=== PATIENT | female | born 1995 | race Caucasian/White ===

== ENCOUNTER 2020-03-30 09:24 | Inpatient (IN) | payer OTHER, SELFPAY ==
[2020-03-30] VITALS (154 sets, daily range): BP systolic 72–170; BP diastolic 36–153; PULSE 68–127; TEMP 36.5–37.7; O2SAT 97–100; BMI 30.4
--- NOTE | 2020-03-30 09:53 | LDADM ---
This patient, Ju Luis, was admitted to Labor/Delivery/Recovery 102 on 03/30/20 at 09:24. Plans for labor, pain management and were discussed with patient. Patient/family oriented to hospital policies and general routines including ID bracelet, bed and alarms, visiting hours, pain management, procedures, bathroom and other care routines, personal items, smoking policy, room service/diet and guest tray routines, security routines, and visiting hours. Patient/Family are encouraged to report perceived risks to care and to ask questions if they do not understand what they are told or what they should do. See OBIX for further documentation.
[2020-03-30 09:55] LABS: Basophils Percent Auto 0.2 % (0.2-1.2); Eosinophils Absolute Auto 0.1 K/mm3 (0-0.3); Eosinophils Percent Auto 1.2 % (0-4.4); Hematocrit 35.4 % (37.0-47.0); Hemoglobin 11.3 g/dL (12.0-15.0); Immature Granulocyte Absolute 0.03 K/mm3 (0.00-0.031); Immature Granulocyte Percent A 0.4 % (0-0.5); Lymphocytes Absolute Auto 2.53 K/mm3 (0.9-3.2); Lymphocytes Percent Auto 30.9 % (18.3-44.2); Mean Corpuscular HGB Conc 31.9 g/dl (32-36); Mean Corpuscular Hemoglobin 25.1 pg (26-34); Mean Corpuscular Volume 78.5 fl (80-100); Mean Platelet Volume 11.5 fl (7.4-10.4); Monocytes Absolute Auto 0.6 K/mm3 (0.1-0.6); Neutrophils Absolute Auto 4.9 K/mm3 (1.3-6.7); Neutrophils Percent Auto 60.3 % (45.5-73.1); Platelet Count Result 223 k/mm3 (150-375); Red Blood Count 4.51 M/mm3 (4.2-5.4); Red Cell Distribution Width 15.4 % (11.5-14.5); White Blood Count 8.2 K/mm3 (4.5-10.0)
--- NOTE | 2020-03-30 10:03 | WPDANESEPP ---
Anes - Eval Pre Procedure Procedure: labor epidural Date/Time: 03/30/20 10:03 Preop Diagnosis: pain during labor Pre Op Diagnosis: Induction of Labor Patient Data Age: 24 Gender: F Height: 5 ft 1 in Weight: 73 kg Allergies Allergy/AdvReac Type Severity Reaction Status Date / Time Penicillins Allergy Mild TREMBLING Verified 03/06/20 13:36 Sulfa (Sulfonamide Allergy Unknown RASH Verified 03/06/20 13:36 Antibiotics) Home Medications Medication Instructions Recorded Confirmed Type PNV cmb#95-ferrous fumarate-FA 1 tablet PO DAILY 03/06/20 03/06/20 History [] Laboratory Tests 03/30/20 03/30/20 09:46 09:46 WBC 8.2 K/mm3 K/mm3 (4.5-10.0) RBC 4.51 M/mm3 M/mm3 (4.2-5.4) Hgb 11.3 g/dL L g/dL (12.0-15.0) Hct 35.4 % L % (37.0-47.0) MCV 78.5 fl L fl (80-100) MCH 25.1 pg L pg (26-34) MCHC 31.9 g/dl L g/dl (32-36) RDW 15.4 % H % (11.5-14.5) Plt Count 223 k/mm3 k/mm3 (150-375) MPV 11.5 fl H fl (7.4-10.4) Immature Gran % (Auto) 0.4 % % (0-0.5) Neut % (Auto) 60.3 % % (45.5-73.1) Lymph % (Auto) 30.9 % % (18.3-44.2) [place] % (Auto) 7.0 % % (2.6-8.5) Eos % (Auto) 1.2 % % (0-4.4) Baso % (Auto) 0.2 % % (0.2-1.2) Lymph # (Auto) 2.53 K/mm3 K/mm3 (0.9-3.2) [place] # (Auto) 0.6 K/mm3 K/mm3 (0.1-0.6) Eos # (Auto) 0.1 K/mm3 K/mm3 (0-0.3) Baso # (Auto) 0.0 K/mm3 K/mm3 (0.0-0.1) Abs Immat Gran (auto) 0.03 K/mm3 K/mm3 (0.00-0.031) Absolute Neuts (auto) 4.9 K/mm3 K/mm3 (1.3-6.7) Absolute Nucleated RBC 0.0 K/mm3 K/mm3 (0.0-0.012) Nucleated RBC % 0.0 % % (0.0-0.2) RPR Pending Patient hx anesthesia problems: none Family hx anesthesia problems: none [facility] Family History Family History (Updated 03/06/20 @ 13:38 by Mike Craig RN) Grandparent FH: CABG (coronary artery bypass surgery) Borderline diabetes Hypertension Social History Social History Smoking status: Never smoker Substance use: never Spiritual care concerns: No Exam Day of Procedure 03/30/20 10:03
[2020-03-30] MEDS: LACTATED RINGERS 1,000 ML 125 ML IV CONT ×3 (10:12→20:08)
[2020-03-30] MEDS: OXYTOCIN 30 UNITS/NS 500 ML 30 UNITS/500 ML BAG 6 UNITS IV CONT (10:12)
--- NOTE | 2020-03-30 11:54 | WPDOBADMIT ---
Obstetrics - Admit Note Admission Note: record reviewed. No pertinent additions to the history and/or any subsequent changes in the physical findings that are not consistent with the expected course of the were found. EIL, SVE 2-3/70/-2 AROM large amount of clear odorless fluid, anticipate vaginal delivery Additions to the history and/or subsequent changes in the physical findings follow. None.
[2020-03-30] MEDS: miSOPROStol 200 MCG TABLET 1000 MCG (20:54)
--- NOTE | 2020-03-30 21:04 | PM.OBPRVD ---
OB - Delivery Note Procedure Delivery date: 03/30/20 Procedure: vaginal delivery Induction method: AROM and per pitocin protocol Delivery monitor: external FHT and external uterine Route of delivery: Laceration description: Labial Delivery repair: vicryl Specimen: No Estimated blood loss (mL): 340 Anesthesia type: Epidural Disposition: other () [place] Baby Date of : 03/30/20 Time of : 20:42 Weeks of gestation at delivery: 39 Infant gender: Female Weight (pounds): 7 Weight (ounces): 6 presentation: vertex position: Left Occiput Anterior Placenta delivery description: Spontaneous cord vessel description: 3 Vessels and Clamped/Cut score one minute: 8 score five minutes: 9 Narrative: mother and baby in stable condition skin to skin, 1000mcg cytotec placed rectally fundus firm after
[2020-03-30] MEDS: OXYTOCIN 30 UNITS/NS 500 ML 30 UNITS/500 ML BAG 125 UNITS IV CONT (21:22)
[2020-03-30] MEDS: BENZOCAINE 20% AER SPR (*SP) 56 GM CAN 1 SPRAY TOPICAL (23:23)
[2020-03-30] MEDS: WITCH HAZEL 40 PADS 1 PAD TOPICAL (23:24)
[2020-03-30] MEDS: ACETAMINOPHEN 325 MG TABLET 650 MG PO (23:34)
[2020-03-30] MEDS: IBUPROFEN 600 MG TABLET PO (23:34)
[2020-03-31 05:15] LABS: Hematocrit 28.8 % (37.0-47.0)
--- NOTE | 2020-03-31 07:22 | P.PNOB_ITS ---
OB - PN: Subj Subjective Date/time seen: 03/31/20 07:22 Patient comments: no complaints baby status: doing well and bottle feeding well [place] feeding status: exclusively bottle feeding OB - PN: Obj Data Labs CBC & Chem 7: 03/31/20 04:11 Labs: Laboratory Results - last 24 hr 03/30/20 03/30/20 03/31/20 09:46 09:46 04:11 WBC 8.2 RBC 4.51 Hgb 11.3 L 9.0 L Hct 35.4 L 28.8 L MCV 78.5 L MCH 25.1 L MCHC 31.9 L RDW 15.4 H Plt Count 223 MPV 11.5 H Immature Gran % (Auto) 0.4 Neut % (Auto) 60.3 Lymph % (Auto) 30.9 [place] % (Auto) 7.0 Eos % (Auto) 1.2 Baso % (Auto) 0.2 Lymph # (Auto) 2.53 [place] # (Auto) 0.6 Eos # (Auto) 0.1 Baso # (Auto) 0.0 Abs Immat Gran (auto) 0.03 Absolute Neuts (auto) 4.9 Absolute Nucleated RBC 0.0 Nucleated RBC % 0.0 Blood Type A Positive Antibody Screen Negative OB - PN A/P Plan day: 1 Plan: routine care Time Spent With Patient Time: Total time spent is greater than 50% in coordination of care (as doc umented) at patient's floor/unit and/or counseling patient: Exam Const: General: comfortable Resp: Effort & Inspection: normal respiratory effort Psych: Appearance: grossly normal Affect: normal affect Attitude: cooperative Judgement: Good judgement present (Psych)
[2020-03-31 10:30] VITALS: BP 115/81; PULSE 106; RESP 18; TEMP 37.2; O2SAT 98
[2020-03-31] MEDS: POLYSACCHARIDE IRON COMPLEX 150 MG CAPSULE PO ×2 (10:53→17:12)
[2020-03-31] MEDS: IBUPROFEN 600 MG TABLET PO ×2 (10:54→19:00)
[2020-03-31] MEDS: DOCUSATE SODIUM 100 MG CAPSULE PO ×2 (10:54→17:12)
--- NOTE | 2020-03-31 11:05 | WPDANLDPN2 ---
Anes-Prog Note L&D Date/Time: 03/31/20 11:05 Comfortable throughout: labor and delivery Neuraxial method: epidural Epidural/Spinal procedure site: clean & non-tender Neuro status: Neuro function grossly intact. Cardiovascular status: normal Respiratory status: normal Airway patency: baseline Mental status: baseline Post-Op hydration status: normal Vital Signs: Last Vital Signs Temp 37.7 C H 03/30/20 23:30 Pulse 95 03/30/20 23:01 BP 110/73 03/30/20 23:01 Pulse Ox 100 03/30/20 19:34 I/O: Intake & Output 03/30/20 03/31/20 03/31/20 23:59 07:59 15:59 Intake Total 1700 Output Total 365 Balance 1335 Post-procedural complaints: none Patient feedback: Patient satisfied with anesthetic care.
[2020-03-31] MEDS: TETANUS,DIPHTHERIA,AC PERTUSSIS ADULT (0.5 ML) BOOSTRIX IM (17:14)
[2020-03-31 19:10] VITALS: BP 113/64; PULSE 91; RESP 18; TEMP 36.6; O2SAT 99
[2020-04-01 07:15] VITALS: BP 109/78; PULSE 91; RESP 18; TEMP 37.3; O2SAT 97
[2020-04-01] MEDS: DOCUSATE SODIUM 100 MG CAPSULE PO (09:37)
[2020-04-01] MEDS: POLYSACCHARIDE IRON COMPLEX 150 MG CAPSULE PO (09:37)
--- NOTE | 2020-04-01 11:52 | PM.OBPNVD ---
OB - PN: Subj Subjective Date/time seen: 04/01/20 11:52 Patient comments: no complaints, pain well controlled and tolerating diet OB - PN: Obj Data Labs CBC & Chem 7: 03/31/20 04:11 OB - PN A/P Plan day: 2 Plan: routine care and discharge home Time Spent With Patient Time: Total time spent is greater than 50% in coordination of care (as documented) at patient's floor/unit and/or counseling patient: Exam Const: General: comfortable and no acute distress Resp: Effort & Inspection: normal respiratory effort Auscultation: no rales, no rhonchi and no wheezes Cardio: Rate: regular rate Heart sounds: no click, no murmurs and no rubs GI: GI Palp: Yes Soft to palpation and No Tenderness to palpation present (GI) Auscultation: normal bowel sounds Extrem: General: normal to inspection, no pedal edema and no calf tenderness
--- NOTE | 2020-04-01 11:53 | P.DS_ITS ---
DS: Admitting Diagnosis Admitting Diagnosis Admitting Diagnosis: Induction of Labor DS: Discharge Diagnosis Discharge Diagnosis (1) Term delivered: Code(s): O80 - Encounter for full-term uncomplicated delivery Status: Acute OB - DS: Summary OB Procedures : None OB Procedures Intrapartum: Spontaneous Vag Delivery OB Procedures: : None Peripartum Data Delivery Method: Natural Vaginal Status at Discharge Functional status at discharge: independent ambulation Time Spent with Patient Time attestation: Total time spent providing and/or coordinating discharge services: Discharge Plan Discharge Discharging Clinician: Adolfo Guerrero Patient Disposition: Home, Self-Care Activity: pelvic rest Diet: regular Patient Instructions: Antibiotic Form Stand Alone Forms: General Discharge Information Follow-up/Referrals: Adolfo Guerrero MD [Physician] - Discharge Medications: Continued PNV cmb#95-ferrous fumarate-FA [] 28 mg iron- 800 mcg Tablet 1 tablet PO DAILY RF: 0 Date of admission: 03/30/20 09:24 Primary Care Provider: Zane,Erik ([facility]) Admitting Provider: Adolfo Guerrero Attending physician on admission: Adolfo Guerrero
--- NOTE | 2020-04-01 17:53 | PC.NURSE ---
1200 Nurse reminded pt several times this a.m. to watch the discharge DVD. she stated she would view it on her phone, but then never did. Pt aware that she can access it from home, and referred to information in her Admission packet.
--- NOTE | 2020-04-01 17:54 | PC.NURSE ---
1263 Mother reviewed and signed discharge papers for herself and her baby and voiced understanding.
[2020-04-02 09:50] LABS: Rapid Plasma Reagin Non-Reactive (NonReactive)
[2020-04-04 13:50] VITALS: BP 101/71; PULSE 86; RESP 20; TEMP 36.8; O2SAT 99
== END 2020-04-01 13:51 | disposition home or self-care (01) | DRG 807 ==
LOC: ANHLDR 09:27 → ANHOB2 23:51
PROVIDERS: Advanced Practice Midwife; Admitting Provider Obstetrics & Gynecology; PCP Internal Medicine; Visit Provider Obstetrics & Gynecology
DX: O70.1 Second degree perineal laceration during delivery (principal); Z37.0 Single live birth; Z3A.39 39 weeks gestation of pregnancy
CPT/HCPCS: 36415; 85014; 85018; 85025; 86592; 86850; 86900; 86901; 90715; A9270; J2590; J2795; J7120

== ENCOUNTER 2020-11-08 08:39 | Outpatient (CLI) | payer OTHER, SELFPAY ==
--- NOTE | ~2020-11-08 | US_ITS ---
EXAMINATION: US thyroid DATE: 11/08/2020 09:06 INDICATION: Hypothyroidism TECHNIQUE: Multiple ultrasound images of the thyroid were obtained. COMPARISON: None. FINDINGS: The right thyroid lobe measures 4.2 x 2.0 x 1.6 cm. The left thyroid lobe measures 4.5 x 1.9 x 1.4 c m. Thyroid isthmus measures 4 mm in thickness. No discrete nodules identified. Heterogeneous decrease d echogenicity with coarsened echotexture throughout the thyroid and with diffuse mild increased vasc ularity on color Doppler. IMPRESSION: 1. Hypoechoic thyroid with coarsened echotexture and diffuse increased vascular flow on color Doppler which could be seen with thyroiditis. Reviewed, dictated and finalized at location A.
== END 2020-11-08 08:40 | disposition home or self-care (01) ==
PROVIDERS: PCP Internal Medicine; Visit Provider Advanced Practice Midwife
DX: E03.9 Hypothyroidism, unspecified (principal)
CPT/HCPCS: 76536

== ENCOUNTER 2023-07-17 12:45 | Emergency (ER) | payer OTHER, SELFPAY ==
[2023-07-17 12:49] VITALS: BP 128/90; PULSE 97; RESP 17; TEMP 36.9; O2SAT 100
--- NOTE | 2023-07-17 14:15 | ED.ABDPAIN ---
HPI - Abdominal Pain General Chief Complaint: Abdominal Pain Stated Complaint: abd pain Time Seen by Provider: 07/17/23 13:57 History of Present Illness HPI narrative: Patient is a healthy 27-year-old female here with abdominal pain. She states that the abdominal pain began on Thursday Adriana is located in her epigastrium. She notes that it feels as though she is bloated. She took laxatives on Thursday which was followed by a bowel movement. This did not seem to change symptoms. She has continued to have flatulence. No prior abdominal surgeries. No fever or chills. She has noted some associated nausea. She denies prior history of endoscopy or colonoscopy. No blood or dark stools. No vaginal bleeding or discharge. She has taken multiple tests at home which were negative. she does state that she frequently takes powdered aspirin/ ibuprofen for migraine headaches. Related Data Home Medications Medication Instructions Recorded Confirmed vit no.95-ferrous 1 tablet PO DAILY 03/06/20 03/06/20 fumarate 28 mg-folic acid 800 mcg tablet () Allergies Allergy/AdvReac Type Severity Reaction Status Date / Time Penicillins Allergy Mild TREMBLING Verified 07/17/23 12:52 Sulfa (Sulfonamide Allergy Unknown RASH Verified 07/17/23 12:52 Antibiotics) Review of Systems Review of Systems: All systems reviewed & are unremarkable except as noted in HPI and below PMFSH Family History Family History (Updated 03/06/20 @ 13:38 by Mike Craig RN) Grandparent FH: CABG (coronary artery bypass surgery) Borderline diabetes Hypertension Social History Social History Smoking status: Never smoker Substance use: never Spiritual care concerns: No Exam Narrative: GENERAL: Well-appearing, well-nourished, and in no acute distress. HEAD: Normocephalic, atraumatic. EYES: PERRLA and EOMI. ENT: Nares clear. Mucous membranes moist. NECK: Supple. CHEST: Clear to auscultation. No respiratory distress. HEART: Regular rate and rhythm. Normal peripheral pulses. ABDOMEN: Soft, Mild epigastric tenderness, no rebound or guarding, negative Schilling sign, no McBurney point tenderness, no CVA tenderness, no suprapubic tenderness EXTREMITIES: Normal range of motion. No edema. SKIN: Warm, dry, no rash. NEURO: No focal deficits. Alert and oriented x3. PSYCH: Normal mood and affect. Course Course Emergency Course: Chart review performed, here with 5 days of abdominal pain and bloating. Triage vitals normal. triage lab work reviewed, no leukocytosis, hemoglobin 14, CMP within normal limits with normal LFTs and normal lipase. Patient seen evaluated, nontoxic appearing. Nonsurgical abdomen at this time. Suspect she likely has a dyspepsia/ gastritis from her NSAID usage. I did discuss the option of imaging today despite reassuring physical exam and lab work. Shared decision making with patient. Will start patient on Carafate, Pepcid, Zofran and have her follow closely with her primary care doctor and return should any of her symptoms worsen or she develops a fever. The results of pertinent diagnostic studies and exam findings were discussed. The patient?s provisional diagnosis and plan of care were discussed with the patient and present family. The patient and/or present family expressed understanding of the diagnosis and plan. The nurse was instructed to provide written instructions and appropriate follow-up information. The patient understands their need and responsibility to obtain additional follow-up as instructed. The risks of medications administered and prescribed were discussed with the patient and family present. Vital Signs Vital signs: Vital Signs Temperature 98.4 F 07/17/23 12:49 Pulse Rate 97 07/17/23 12:49 Respiratory Rate 17 07/17/23 12:49 Blood Pressure 128/90 07/17/23 12:49 Pulse Oximetry 100 07/17/23 12:49 Oxygen Delivery Room Air 07/17/23 12:49 T
[2023-07-17 14:16] LABS: Basophils Percent Auto 0.1 % (0.2-1.2); Eosinophils Absolute Auto 0.1 K/mm3 (0-0.3); Eosinophils Percent Auto 0.9 % (0-4.4); Hematocrit 42.6 % (37.0-47.0); Immature Granulocyte Absolute 0.02 K/mm3 (0.00-0.031); Immature Granulocyte Percent A 0.3 % (0-0.5); Lymphocytes Absolute Auto 1.75 K/mm3 (0.9-3.2); Lymphocytes Percent Auto 25.5 % (18.3-44.2); Mean Corpuscular HGB Conc 32.9 g/dl (32-36); Mean Corpuscular Hemoglobin 29.3 pg (26-34); Mean Corpuscular Volume 89.1 fl (80-100); Mean Platelet Volume 10.2 fl (7.4-10.4); Monocytes Absolute Auto 0.5 K/mm3 (0.1-0.6); Monocytes Percent Auto 7.7 % (2.6-8.5); Neutrophils Absolute Auto 4.5 K/mm3 (1.3-6.7); Neutrophils Percent Auto 65.5 % (45.5-73.1); Platelet Count Result 253 k/mm3 (150-375); Red Blood Count 4.78 M/mm3 (4.2-5.4); Red Cell Distribution Width 12.8 % (11.5-14.5); White Blood Count 6.9 K/mm3 (4.5-10.0)
[2023-07-17 14:26] LABS: Alanine Aminotransferase 14 U/L (6-35); Albumin Level 4.2 g/dL (3.5-5.1); Alkaline Phosphatase 50 U/L (38-126); Anion Gap 7 mmol/L (8-16); Aspartate Amino Transferase 23 U/L (14-36); Bilirubin,Total 0.5 mg/dL (0.2-1.3); Blood Urea Nitrogen 6 mg/dL (7-17); Calcium 9.2 mg/dL (8.4-10.2); Carbon Dioxide 25 mmol/L (22-30); Chloride 106 mmol/L (98-107); Estimated CRCL calculation 78 ml/min; Estimated Glomerular Filt Rate > 60; Glucose 77 mg/dL (65-110); Lipase 86 U/L (23-300); Potassium 4.1 mmol/L (3.4-5.0); Sodium 138 mmol/L (137-145)
[2023-07-17 15:34] LABS: Appearance Urine Cloudy (Clear); Bacteria Urine 1+ /hpf; Bilirubin Urine Negative (Negative); Blood Urine Trace (Negative); Color Urine Yellow (Yellow); Glucose Urine UA Negative (Negative); Ketones Urine Negative (Negative); Leukocyte Esterase Ur 1+ LEU/UL (Negative); Nitrate Urine Negative (Negative); Non Pathogenic Casts 0-2; Protein Urine Negative (Negative); RBC Urine 0-2 /hpf (0-2); Specific Grav Ur 1.024 (1.001-1.035); Squamous Epithelial Cell Urine Few /hpf (Few); WBC Urine 21-50 /hpf; pH Urine 5.5 (5.0-9.0)
[2023-07-17] MEDS: SUCRALFATE SUSP 100 MG/ML 10 ML UDC 1000 MG PO (15:42)
[2023-07-17] MEDS: ONDANSETRON HCL ODT 4 MG TABLET PO (15:42)
[2023-07-17 15:45] VITALS: BP 119/82; PULSE 73; RESP 15; O2SAT 100
[2023-07-17 15:53] LABS: Add Urine Microscopic? YES
== END 2023-07-17 15:46 | disposition home or self-care (01) ==
PROVIDERS: Emergency Provider Student in an Organized Health Care Education/Training Program; PCP Internal Medicine
DX: R10.13 Epigastric pain (principal); R11.0 Nausea
CPT/HCPCS: 36415; 80053; 81001; 81025; 83690; 85025; 87086; 87088; 99283; A9270

== ENCOUNTER 2023-12-28 06:25 | Emergency (ER) | payer SELFPAY ==
[2023-12-28 06:25] VITALS: BP 108/83; PULSE 89; RESP 18; TEMP 36.4; O2SAT 98
--- NOTE | 2023-12-28 06:36 | PC.NURSE ---
ER Provider at the bedside
--- NOTE | 2023-12-28 06:49 | ED.GENADULT ---
HPI - General Adult General Chief complaint: Dental/Oral Stated complaint: Dental Pain Source: patient Mode of arrival: ambulatory Limitations: no limitations History of Present Illness HPI narrative: 20-year-old white female complains of left lower tooth pain started 2 or 3 days ago. She has had problem with that tooth before as well as posterior molar taken Tylenol without much relief. Denies any fever cough runny nose sore throat problems eating or drinking voiding or stooling rash or itching bleeding or bruising lumps or bumps or any other problems. She said she is going to call the doctor /Dentist in 2 days. Related Data Allergies Allergy/AdvReac Type Severity Reaction Status Date / Time Penicillins Allergy Mild TREMBLING Verified 07/17/23 12:52 Sulfa (Sulfonamide Allergy Unknown RASH Verified 07/17/23 12:52 Antibiotics) Review of Systems Review of Systems: All systems reviewed & are unremarkable except as noted in HPI and below [facility] Family History Family History (Updated 03/06/20 @ 13:38 by Mike Craig RN) Grandparent FH: CABG (coronary artery bypass surgery) Borderline diabetes Hypertension Social History Social History Smoking status: Never smoker Substance use: never Spiritual care concerns: No Exam Narrative: white female no apparent distress head normocephalic atraumatic TMs are normal oropharynx is clear without exudates. Left lower tooth 20. Was cracked mildly tender and her molar 17 is decayed but nontender. She has swelling of gums. Neck no lymphadenopathy supple. Lungs are clear heart is regular rate and rhythm without murmurs gallops or rubs neurologic she is alert and oriented x4 motor and sensory grossly intact skin is clear. Course Vital Signs Vital signs: Vital Signs Temperature 36.4 C 12/28/23 06:25 Pulse Rate 89 12/28/23 06:25 Respiratory Rate 18 12/28/23 06:25 Blood Pressure 108/83 12/28/23 06:25 Pulse Oximetry 98 12/28/23 06:25 Oxygen Delivery Room Air 12/28/23 06:25 Temperature 36.4 C 12/28/23 06:25 Pulse Rate 89 12/28/23 06:25 Respiratory Rate 18 12/28/23 06:25 Blood Pressure 108/83 12/28/23 06:25 Pulse Oximetry 98 12/28/23 06:25 Oxygen Delivery Room Air 12/28/23 06:25 Medical Decision Making MDM Narrative Medical decision making narrative: ? Patient placed in room: One ? History and physical was performed. Independent Historian: patient External Source Review: Differential Dx includes but not limited to: dental abscess dental silvano Medications were Reviewed: Tylenol no other meds Medications given: none Independently Interpreted by me: Shared decision Making: evaluation was discussed all questions were asked and answered patient agreed with the plan. Social Situation Impacting Patients Care: She has not seen a dentist in years Discussed with Dr. BYRNE DIAGNOSIS: dental pain DISPOSITION: discharge home CONDITION AT DISCHARGE: stable Vital Signs Vital Signs: Vital Signs Temperature 36.4 C 12/28/23 06:25 Pulse Rate 89 12/28/23 06:25 Respiratory Rate 18 12/28/23 06:25 Blood Pressure 108/83 12/28/23 06:25 Pulse Oximetry 98 12/28/23 06:25 Oxygen Delivery Room Air 12/28/23 06:25 Temperature 36.4 C 12/28/23 06:25 Pulse Rate 89 12/28/23 06:25 Respiratory Rate 18 12/28/23 06:25 Blood Pressure 108/83 12/28/23 06:25 Pulse Oximetry 98 12/28/23 06:25 Oxygen Delivery Room Air 12/28/23 06:25 Discharge Plan Discharge Clinical Impression: Pain, dental Patient Disposition: Home, Self-Care Condition: Stable Instructions: Antibiotic Form, Toothache (ED) Additional Instructions: Tylenol 500 m tablets 4 times a day and or ibuprofen 200 m tablets 3 times a day as needed for pain. Tramadol 50 mg 3 times a day as needed for pain. Follow-up with your dentist in 2 days as discussed. clindamycin 150 mg 3 times a day for 7 days
== END 2023-12-28 07:08 | disposition home or self-care (01) ==
PROVIDERS: Emergency Provider Emergency Medicine; PCP Internal Medicine
DX: K08.89 Other specified disorders of teeth and supporting structures (principal)
CPT/HCPCS: 99283

== ENCOUNTER 2024-09-16 14:55 | Outpatient (CLI) | payer BC, SELFPAY ==
[2024-09-16 15:11] LABS: Basophils Absolute Auto 0.01 K/mm3 (0.00-0.10); Basophils Percent Auto 0.1 % (0.0-1.0); Eosinophils Absolute Auto 0.23 K/mm3 (0.02-0.50); Hematocrit 38.3 % (35.0-49.0); Hemoglobin 12.6 g/dL (12.0-15.0); Immature Granulocyte Absolute 0.03 K/mm3 (0.00-0.00); Immature Granulocyte Percent A 0.4 % (0.0-0.0); Lymphocytes Absolute Auto 1.83 K/mm3 (1.10-4.50); Lymphocytes Percent Auto 24.2 % (18.0-42.0); Mean Corpuscular HGB Conc 32.9 g/dL (32-36); Mean Corpuscular Hemoglobin 28.8 pg (27.0-31.0); Mean Corpuscular Volume 87.6 fL (78.0-102.0); Mean Platelet Volume 9.8 fl (9.2-11.8); Monocytes Absolute Auto 0.47 K/mm3 (0.10-0.90); Monocytes Percent Auto 6.2 % (2.0-11.0); Neutrophils Percent Auto 66.1 % (50.0-70.0); Platelet Count Result 249 K/mm3 (150-420); Red Blood Count 4.37 M/mm3 (4.20-5.40); White Blood Count 7.6 K/mm3 (4.8-10.8)
[2024-09-16 16:06] LABS: Alanine Aminotransferase 15 U/L (14-59); Albumin Level 3.9 g/dL (3.4-5.0); Alkaline Phosphatase 49 U/L (46-116); Anion Gap 9 mmol/L (4-12); Bilirubin,Total 0.4 mg/dL (0.00-1.00); Blood Urea Nitrogen 12 mg/dL (7-18); Calcium 9.2 mg/dL (8.5-10.1); Carbon Dioxide 29 mmol/L (21-32); Chloride 105 mmol/L (98-108); Cholesterol 144 mg/dL (0-200); Estimated Glomerular Filt Rate > 60; Glucose 87 mg/dL (70-99); HDL Direct 46 mg/dL (40-60); LDL Cholesterol Calculated 82 mg/dL (<130); Osmolality Calculated 294 mOsm/kg (285-295); Potassium 3.7 mmol/L (3.5-5.1); Sodium 143 mmol/L (136-145); Total Protein 7.2 g/dL (6.4-8.2); Triglycerides 81 mg/dL (0-150)
[2024-09-16 16:24] LABS: Aspartate Amino Transferase 12 U/L (15-37)
[2024-09-16 16:38] LABS: Free T4 Free Thyroxine Reflex 0.86 ng/dL (0.76-1.46)
[2024-09-16 17:21] LABS: Hemoglobin A1C 4.8 % (<5.7)
== END 2024-09-16 14:56 | disposition home or self-care (01) ==
LOC: CHSLAB 14:57
PROVIDERS: PCP Nurse Practitioner Family; Visit Provider Nurse Practitioner Family
DX: Z00.00 Encounter for general adult medical examination without abnormal findings (principal); E03.9 Hypothyroidism, unspecified
CPT/HCPCS: 36415; 80053; 80061; 83036; 84439; 84443; 85025

== ENCOUNTER 2024-11-04 10:02 | Outpatient (CLI) | payer BC, SELFPAY ==
--- OUTSIDE RECORDS SUMMARY | 2024-11-04 10:53 | XMS_ITS | Data Portability ---
Author Organization [facility] Address [address] [place] [address] Assessment Encounter Date Assessment Date Assessment LastModified by Organization Details LastModified Time 09/24/2022 09/24/2022 Pt follows with [facility]. [email or web address] Not available 09/24/2022 14:30:19 12/24/2022 12/24/2022 Pt follows with [facility]. Sections of the HPI, exam and assessment completed by ENOC Hernandez student and have been reviewed by me. I agree with the exam findings, assessment and plan except where specifically documented or amended. -Juana Corbett, [facility], PASrikanthC [email or web address] Not available 12/24/2022 14:00:07 Plan of Treatment Reminders Order Date Submit Date Provider Last Modified By Organization Details Last Modified Time Details Appointments None recorded. Lab None recorded. Referral neurologist referral 2022 023 [email or web address] Halie Estes MD, [address] [facility] [address], [place], [address], 3 16:51:[address] referral 2022 023 ivan Magdaleno MD, [address], [place], [address], 3 13:13:02 Procedures None recorded. Surgeries None recorded. Imaging None recorded. Medication Orders triamcinolo ne acetonide 0.1 % topical ointment 2022 023 [email or web address] [id number], [address] [place], [address], 3 14:22:21 nystatin 100,000 unit/gram topical cream [address] [id number], [address] [place], [address], 3 11:19:07 topiramate 25 mg tablet 2022 023 [email or web address] [id number], [address] [place], [address], 3 11:37:23 Patient TargetsNo targets recorded. Patient Instructions Encounter Date Encounter Id Patient Instructions Last Modified By Organization Details Last Modified Time 09/24/2022 [id number] A healthy lifestyle: care instructions [email or web address] Not available 09/24/2022 14:22:21 Reason for Referral Director Community Organization Referral for P ustular psoriasis Referring Physician: [facility], Encounter Date: 09/24/2022 Neurologist Referral for Aleks ludivina without aura Referring Physician: [facility], Encounter Date: 12/24/2022 Problems Name Problem SNOMED Code Status Onset Date Resolution Date Notes Provider Name and Address Organization Details Recorded Time 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 Medical Equipment None Reported. Allergies Allergen ID Allergen Name Allergen Category Reaction Reaction Severity Criticality Documentation Date Start Date Code Code System Note Provider Name and Address Organization Details Recorded Time 748560 Substance with sulfonami de structure and antibacte rial mechanism of action (substanc e) medicatio n Not available Not available Not available 09/24/2022 02607 8003 SNOMED Not Available Not Available Not Available 096986 amoxicill in medicatio n Not available Not available Not available 09/24/2022 723 RxNorm Not Available Not Available Not Available Medications Name Sig Start Date Stop Date Status Note LastModified by Organization Details LastModified Time ibuprofen 800 mg tablet TAKE 1 TABLET BY MOUTH EVERY 8 HOURS NEEDED FOR PAIN 09/24 completed Not Available Not Available Not Available clarithro mycin 500 mg tablet TAKE 1 TABLET BY MOUTH EVERY 12 HOURS FOR 10 DAYS 12/24 completed Not Available Not Available Not Available hydrocodo ne 5 mg-acetam inophen 325 mg tablet TAKE 1-2 TABLETS BY MOUTH EVERY SIX HOURS NEEDED FOR PAIN 09/24 completed Not Available Not Available Not Available prednison e 20 mg tablet TAKE 2 TABLETS BY MOUTH EVERY DAY FOR 5 DAYS 09/24 completed Not Available Not Available Not Available topiramat e 25 mg tablet TAKE 1 TABLET BY MOUTH EVERY DAY AT BEDTIME FOR 30 DAYS 12/24 completed stopped by SYSTEM DEVELOPMENT MANAGER Not Available Not Available Not Available triamcino lone acetonide 0.1 % topical ointment APPLY A THIN LAYER TO THE AFFECTED AREA(S) BY TOPICAL ROUTE 2 TIMES PER DAY 14 DAYS active Not Available Not Available No t Available nystatin 100,000 unit/gram topical cream APPLY TO THE AFFECTED AREA(S) BY TOPICAL ROUTE 2 TIMES PER DAY X30 DAYS 12/24 completed Not Available Not Available Not Available Synthroid 75 mcg tablet TAKE 1 TABLET BY MOUTH EVERY DAY IN THE MORNING active Not Available Not Available No t Available Nexplanon 68 mg subdermal implant Inject by subcutan eous route. 12/24 completed Not Available Not Available Not Available Vitals Date Recorded Body height Body mass index (BMI) Body weight Body temperature Respiratory rate Oxygen saturation Oxygen saturation in Arterial blood by Pulse oximetry Heart rate Systolic blood pressure Diastolic blood pressure Provider Name and Address Organization Details Last Updated DateTime 3 154.94 cm 25.8 kg/m2 20466.0 1 g 98 [degF] 16 /min 95 % 95 % 84 /min 112 mm[Hg] 60 mm[Hg] Luna JaquezMAYNOR [place] - [facility] 3 10:19:35 Date Recorded Body height Body mass index (BMI) Body weight Oxygen saturation Oxygen saturation in Arterial blood by Pulse oximetry Heart rate Respiratory rate Body temperature Systolic blood pressure Diastolic blood pressure Provider Name and Address Organization Details Last Updated DateTime 3 154.94 cm 25.8 kg/m2 51232.6 6 g 98 % 98 % 76 /min 16 /min 97.6 [degF] 110 mm[Hg] 66 mm[Hg] Luna Jaquez [place] [facility] 3 11:25:17 Social History Question Answer Notes LastModified by Organizat ion Details LastModified Time Tobacco Smoking Status Never Smoker [facility] 09/24/2022 10:16:33 What Is Your Level Of Alcohol Consumption? Occasional Information not available 09/24/2022 How Many Years Have You Consumed Alcohol? 7 Information not available 09/24/2022 What Is Your Level Of Caffeine Consumption? Moderate Information not available 09/24/2022 What Was The Date Of Your Most Recent Tobacco Screening? 12/24/2022 Information not available 12/24/2022 Do You Use Any Illicit Or Recreational Drugs? No Information not available 09/24/2022 Has Tobacco Cessation Counseling Been Provided? No Information not available 09/24/2022 Do You Or Have You Ever Used Any Other Forms Of Tobacco Or Nicotine? No Information not available 09/24/2022 Sex: Female Functional Status None recorded. Mental Status None recorded. Family History Relationship Description Onset Age of this Age Resolved Age Notes LastModified by Organization Details LastModified Time Father No current problems or disability Not available 09/24 10:16:05 Mother No current problems or disability Not available 09/24 10:16:05 Medical History Condition Response Coronary Artery Disease N Other N Atrial Fibrillation N High Blood Pressure N Thyroid Problems Y Kidney or Bladder Problems N GI Problems N Depression N COPD N Blood Clots N Eating Disorder N Skin Problems N Anemia N Heart Attack (MA) N Anxiety Disorder N Diabetes N Muscle, Joint, or Bone Problems N Seizures/Epilepsy N Acid Reflux (GERD) N Cancer N Stroke N Asthma N Allergies N ADHD N Substance Abuse N High Cholesterol N Hepatitis N Liver Disease N Schizophrenia N Headaches N Heart Failure N Osteoporosis N Gynecological History Statement/Question Response Date of LMP 09/22/2022 Menses Monthly N Age at Menarche 11 Current Control Method Implant Age at First Child 24 LMP Definite Obstetrics History GPAL:G 2 P 1 0 1 1 Type Value Full Term 1 Spontaneous 1 Living 1 Total 2 Past Encounters Encounter ID Performer Location Encounter Start Date Encounter Closed Date Diagnosis/Indication Diagnosis SNOMED-CT Code Diagnosis ICD10 Code Diagnosis Note [id number] ENOC HARRIS [facility] [address] [place] [address] 09/24/2022 10:04:44 09/24/2022 11:12:11 Migraine without aura 63803997 G43.009 x10 yrswas on injection and oral medssensit lissa to lightlasts all daytrial topamax 25 mgf/u in 2 wks if need to increase dose or add sumatripta n for abortive measuresfu ture referral to neuro Pustular psoriasis 83445 3000 L40.1 R palm/wrist x2 yrsrecurre nt pustules/b listers that popexcessi ve itchingPEx - diffuse scaling/pe eling and erythema to R palm, R wrist with varying stages of scabbing 2 mm maculespos sibly pustular psoriasist rial mod potency steroid cream x2 wksrefer to derm Candidal intertrigo 2661 79086 B37.2 mid sternal between breastsc/o red patch, worse with sweatingno moisturemo st likely candidatri al nystatin cream Overweight 421410245 E66 .3 Depression screening 171 727637 Z13.31 PHQ 3 [id number] ENOC HARRIS [facility] [address] [place] [address] 12/24/2022 11:12:27 12/24/2022 11:51:13 Migraine without aura 88309895 G43.009 12/24/22:OB /RECEIVING DOCK CHECKER stopped topamax because pt is currently trying to get Be nadryl at night helps lessen migraine and helps with sleepworse taisha migraines, has visual auras before migraine startsAmit riptyline- category C- pt has been trying to get a hold of SYSTEM DEVELOPMENT MANAGER to discuss- Referral to neurologis t to find medication safe prior to and during 09/24/22:x1 0 yrswas on injection and oral medssensit lissa to lightlasts all daytrial topamax 25 mgf/u in 2 wks if need to increase dose or add sumatripta n for abortive measuresfu ture referral to neuro Pustular psoriasis 55623 3000 L40.1 12/24/22:pr esents today with PEx- erythemato us papules and pustules coalescing into plaques on dorsal right hand and wrist, scaling on right palmmost likely eczemaadmi ts to not using steroid cream consistent lyprinted off derm referral and encouraged pt to call to schedule appt 09/24/22:R palm/wrist x2 yrsrecurre nt pustules/b listers that popexcessi ve itchingPEx - diffuse scaling/pe eling and erythema to R palm, R wrist with varying stages of scabbing 2 mm maculespos sibly pustular psoriasist rial mod potency steroid ointment x2 wks- Refer to derm; provided patient with informatio n- Continue triamcinol one ointment to the affected areas on the hand twice daily till clear Candidal intertrigo 2661 13659 B37.2 12/24/22:- Improved at today's visit 09/24/22:mi d sternal between breastsc/o red patch, worse with sweatingno moisturemo st likely candidatri al nystatin cream Health Concerns Section Related Observation LastModified by Organization Detai ls LastModified Time None Recorded Concern Status LastModified by Organization Details LastModified Time None Recorded Advance Directives Directive None Recorded Payers Encounter Date Sequence Insurance Name Policy Number Policy Polanco Covered Member ID Polanco Member ID Guarantor Name 09/24/2022 1 *SELF PAY* Miguel Prescott 12/24/2022 1 *SELF PAY* Miguel Prescott Notes Date Note Type Note Provider Name and Address Organization Details Recorded Time 09/24/2022 text/html Pt presents to establish care as a new patient. H/o migraines for 10 yrs. Was previously on injections and oral medications. Pt has been off medications for 3 months. Requesting to re-start oral pills due to daily migraines x2 wks. Describes migraines as sharp, stabbing, aching located on the front of her head and moves to the back of her head. Worse at night with driving, like my eyes are cloudy on the outside, and sensitivity to light. A/w intermittent neck pain, nausea, and vomiting. Denies flashes/floaters before onset of migraine. Pt wakes up and goes to bed with migraines. FH of maternal grandpa and mother's brother with migraines.Diagnosed with brody's thyroiditis 2 yrs ago after she gave to her daughter. She is on levothyroxine and follows with endocrine, Dr. Billie Jay.C/o rash to R palm and wrist x2 yrs. Previous primary gave her eucrisa cream w/o improvement. States that she will get red bumps/blisters to her palm, it will dry up and scab over. C/o severe itching and has been using hydrocortisone cream. ENOC HARRIS Attn: Accounting,[address] [place], [address], [place] [facility] 09/24/2022 14:30:35 12/24/2022 text/html Ju Prescott is a 27 y/o female with PMHx hypothyroidism d/t Brody's and migraines without aura that presents to the office needing new migraine medication. She recently was taken off topamax by SYSTEM DEVELOPMENT MANAGER because she is currently trying to get . Pt states that she went to the eye doctor, no indication for glasses, but was told that she is having auras before her migraines start. She has been taking benadryl at night to help her sleep, takes excedrin migraine w/o relief. Requesting new medication for migraines.Denies fever, chills, chest pain, SOB, n/v/d, abd pain, dizziness, or weakness. ENOC HARRIS Attn: Accounting[address] [place], [address], [place] [facility] 12/24/2022 14:02:06 OBGyn Episode No OBEpisode recorded.
--- OUTSIDE RECORDS SUMMARY | 2024-11-04 10:53 | XMS_ITS | Data Portability ---
Author Organization [facility] [place] Address [address] [place] [place] [address] [place] [address] Care Team Providers Care Golf Tournament Consultant Name Role Phone TUYET HINDS Primary Care Provider Assessment Encounter Date Assessment Date Assessment LastModified by Organization Details LastModified Time 03/06/2021 03/06/2021 kee well f/u wwe [email or web address] Not availa ble 03/06/2021 14:31:13 10/03/2022 10/03/2022 Annual gynecological exam performed. Patient will come back in a year unless there are new symptoms. Suggest Calcium with Vitamin D if not eating in diet. Patient advised to get annual flu shot. Recommend yearly physicals and preform monthly breast exams. Genetic testing is available for patients with family history of cancer. Engage in safe sexual practices, use condoms. Encouraged to have daily exercise. Avoid tobacco and illicit drugs, moderation of alcohol. If BMI greater than 25 dietary consult advised. If you have any questions please call or email. [email or web address] Not available 10/03/2022 15:38:05 09/20/2024 09/20/2024 Annual gynecological exam performed. Patient will come back in a year unless there are new symptoms. [email or web address] Not available 09/20/2024 16:14:23 Plan of Treatment Reminders Order Date Submit Date Provider Last Modified By Organization Details Last Modified Time Details Appointments None recorded. Lab urinalysis, dipstick 2022 023 [email or web address] [place], [address], [place], [address], 3 16:04:15 test, urine 2020 021 [email or web address] 1 [place], [address], [place], [address], 1 14:27:47 urinalysis, dipstick 2020 021 [email or web address] [address], [address], [place], [address], 11:01:14 Referral None recorded. Procedures None recorded. Surgeries None recorded. Imaging None recorded. Medication Orders Macrobid 100 mg capsule 2022 023 [email or web address] [facility] #[id number], [address] , [place], [place], [id number], 5 16:18:30 Cipro 500 mg tablet 2020 021 [email or web address] 1 [facility] #67151, [address], [place], [place], [id number], 14:17:58 Twirla 120 mcg-30 mcg/24 hr transdermal patch 2020 021 [email or web address] 1 [email or web address], [address], [place], [place], [id number], 14:18:01 Patient TargetsNo targets recorded. Patient InstructionsNo instructions recorded. Reason for Referral None Reported. Results Created Date Observation Date Name Description Value Unit Range Abnormal Flag Note LastModifiedBy Organization Detail LastModifiedTime 01/06/2001/05/2021 urina lysis , dipst ick Leukocytes 3+ Not Available Cecy pyle [address], [place], [address], 01/05/2021 11:01:00 01/06/20 21 01/05/2021 urina lysis , dipst ick Nitrite trace Not Available [place] [address], [place], [address], 01/05/2021 11:01:00 01/06/20 21 01/05/2021 urina lysis , dipst ick Blood +++ Not Available [place] [address], [place], [address], 01/05/2021 11:01:00 03/06/20 21 03/06/2021 pregn fabiano test, urine HCG negati ve Not Available [place] [address], [place], [address], 03/06/2021 14:27:07 10/03/19 23 10/03/2022 IMAGE GUIDE D PAP, REFLE X HPV IF ASCUS ONLY image guided Pap, reflex HPV ASCUS only SEE RESULT S BELOW CASE REPOR T: Cytol ogy Gynec ologi malgorzata Repor t Case: [id number] Autho preston g Provi leisa: Yue Negron NP Colle cted: 10/03 1624 Order ing Locat ion: [place] [facility] Recei misha: 10/04 1021 First Scree n: Devin Gilbert, CT Speci men: Scree taisha Pap - Image d, Cervi x STATE MENT OF ADEQU ACY: Satis facto ry for evalu ation Trans forma tion zone compo nent prese nt FINAL DIAGN OSIS: Negat lissa for Intra epith elial Lesio n or Ilsa fritz (NIL) . Shift in mj sugge stive of bacte rial vagin osis. Elect rj garza francesca d by Devin Gilbert, CT on 023 at 4:38 PM ----- ----- ----- ----- ----- ----- ----- ----- ----- ----- ----- ----- ----- ----- ----- ----- ----- ---- COMME NT: Note: This speci men was revie wed by a Cytot echno logis t and/o r Patho logis t (as indic ated in this repor t) after evalu ation using the Thinp rep Imagi ng Syste m. CLINI MALGORZATA INFOR MATIO N: Menst rual Statu s: LMP (if appli cable ): Clini malgorzata Histo ry/Pr eviou s Pap: Type of Neopl rodney (if appli cable ): Signi fican t Clini malgorzata Findi ngs: Other Histo ry: Hormo anjelica (if appli cable ): PAP EDUCA SHOSHANA L NOTE: The Pap Test is a scree taisha test with an inher ent false negat lissa rate. Liqui d-bas ed sampl ing may decre ase, but will not elimi jhony, false negat lissa resul ts. A negat lissa resul t does not precl ude the prese nce and/o r devel opmen t of disea se, since the prese nce of abnor mal cells in the sampl e depen ds on the locat ion of the lesio n and sampl ing techn ique. Glen nued regul ar scree taisha is the best metho d of cance r preve ntion . If repor jhon cytol ogic findi ng do not corre late with physi malgorzata and/o r histo rical findi ngs, furth er inves tigat ion is recom naun d, as clini daniel rasheed nted. Not Available [facility] (Lab) [address], [place], [address], 10/08/2022 17:40:33 03/04/20 23 03/04/2023 urina lysis , dipst ick Leukocytes ++ Not Available Cecy pyle [facility] [address], [place], [address], 03/04/2023 16:03:35 03/04/20 23 03/04/2023 urina lysis , dipst ick Nitrite + Not Available [address] [place], [address], 03/04/2023 16:03:35 03/04/20 23 03/04/2023 urina lysis , dipst ick Protein trace Not Available [place] [address], [place], [address], 03/04/2023 16:03:35 03/04/20 23 03/04/2023 urina lysis , dipst ick pH 5 Not Available [place] [address], [place], [address], 03/04/2023 16:03:35 03/04/20 23 03/04/2023 urina lysis , dipst ick Blood +++ Not Available [place] [address], [place], [address], 03/04/2023 16:03:35 03/04/20 23 03/04/2023 urina lysis , dipst ick Specific Rock 1.020 Not Available [facility] [address], [place], [address], 03/04/2023 16:03:35 03/04/20 23 03/04/2023 urina lysis , dipst ick Appearance Not Available [facility] lashanda [address], [place], [address], 03/04/2023 16:03:35 Result Notes None recorded. Problems Name Problem SNOMED Code Status Onset Date Resolution Date Notes Provider Name and Address Organization Details Recorded Time Low lying placenta 650694771 Completed 01/10/2020 lidia armstrong [place] - [facility] 12:19:36 Screenin g for malignan t neoplasm of cervix Completed 201910/01/2020 Encounte r for screenin g pap smear for cancer of cervix;R ecorded Elsewher e: No [facility]at [facility] E[facility] Order Entry Administrator kevan: N Suti ce ID: 0001 Cirilo lable Time: 03:00:00 PM Parisa armstrong, [facility] 16:24:59 Pregnanc y detectio n examinat ion Completed 201910/01/2020 Encounte r for pregnanc y test, result positive ;Recorde d Elsewher e: No [facility]at [facility] E[facility] Order Entry Administrator kevan: N Suti ce ID: [id number] Cirilo lable Time: 03:00:00 PM Parisa armstrong, [facility] 16:24:56 Antenata l screenin g Completed 201910/01/2020 Encounte r for other specifie d antenata l screenin g;Record ed Elsewher e: No Locat ion: [facility] S ource: EHR Order Entry Administrator kevan: N Suti ce ID: [id number] Cirilo lable Time: 10:00:00 AM Parisa armstrong, [facility] 1 16:24:45 Normal pregnanc y in multigra tristin [id number] Completed 201910/01/2020 Encounte r for supervis ion of other normal pregnanc y, 2nd trimeste r;Record ed Elsewher e: No Locat ion: [facility] S ource: EHR Order Entry Administrator kevan: N Suti ce ID: [id number] Cirilo lable Time: 10:00:00 AM Parisa armstrong, [facility] 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 1 16:25:01 Antenata l screenin g for malforma tion Completed 201910/01/2020 Encounte r for antenata l screenin g for malforma tions;Re corded Elsewher e: No [facility]at [facility]: EHR Order Entry Administrator kevan: N Rik ce ID: [id number] Cirilo lable Time: 08:45:00 AM Parisa armstrong, [facility] 1 16:24:48 Chronic migraine without aura [id number] 4105 Active 2019 Chronic migraine without aura;Rec orded Elsewher e: No Locat ion: [facility] S ource: EHR Order Entry Administrator kevan: N Rik ce ID: [id number] Cirilo lable Time: 03:00:00 PM Not Available [facility] 0 15:57:27 History of blood transfus ion 256087575 Active 2020 Parisa armstrong, [facility] 1 14:03:01 Pregnanc y 30168085 Completed 201908/27/2020 Kristy armstrong [facility] 1 12:19:41 Problem Notes None recorded. Procedures Surgical History Date Name Laterality Status Provider Name and Address Organization Details Recorded Time 10/03/19 23 Control Implant Removal completed Yue Villafana CNM [address], [place], [address], [facility] 10/03/2022 15:38:17 10/03/19 23 Date of Last Pap Smear completed Parisa Wills [facility] 10/03/2022 15:23:14 03/06/20 21 Control Implant Insertion completed Yue Villafana CNM [address], [place], [address], [facility] 03/06/2021 14:30:48 09/18/19 97 transfusion of blood product completed Parisa Wills [facility] 10/31/2020 14:05:17 removal of mole of skin by excision completed Parisa Wills [facility] 10/03/2022 15:23:56 Imaging Results None recorded. Procedure Notes None recorded. Medical Equipment None Reported. Allergies Allergen ID Allergen Name Allergen Category Reaction Reaction Severity Criticality Documentation Date Start Date Code Code System Note Provider Name and Address Organization Details Recorded Time 457 amoxicill in medicatio n Not available Not available Not available 12/13/2019 723 RxNorm Carlie armstrong [facility] 0 04:25:54 458 sulfameth izole Not available Not available Not available Not available 12/13/2019 99882 RxNorm Crystal Mary armstrong [facility] 0 04:26:24 Medications Name Sig Start Date Stop Date Status Note LastModified by Organization Details LastModified Time prednisone 10 mg tablet PLEASE SEE ATTACHED FOR DETAILED DIRECTION S 03/04 completed Not Available Not Available Not Available ibuprofen 800 mg tablet TAKE 1 TABLET BY MOUTH EVERY 8 HOURS NEEDED FOR PAIN 10/03 completed Not Available Not Available Not Available fluconazole 150 mg tablet TAKE 1 TABLET BY MOUTH FOR 1 DAY 09/20 completed Not Available Not Available Not Available clarithromy tony 500 mg tablet TAKE 1 TABLET BY MOUTH EVERY 12 HOURS FOR 10 DAYS 03/04 completed Not Available Not Available Not Available hydrocodone 5 mg-acetamin ophen 325 mg tablet TAKE 1-2 TABLETS BY MOUTH EVERY SIX HOURS NEEDED FOR PAIN 10/03 completed Not Available Not Available Not Available prednisone 20 mg tablet TAKE 2 TABLETS BY MOUTH EVERY DAY FOR 5 DAYS 03/04 completed Not Available Not Available Not Available pimecrolimu s 1 % topical cream APPLY TO FACE TWICE A DAY 09/20 completed Not Available Not Available Not Available clindamycin HCl 150 mg capsule TAKE 1 CAPSULE BY MOUTH THREE TIMES DAILY UNTIL ALL TAKEN 09/20 completed Not Available Not Available Not Available topiramate 25 mg tablet TAKE 1 TABLET BY MOUTH EVERY DAY AT BEDTIME FOR 30 DAYS 03/04 completed Not Available Not Available Not Available metronidazo le 500 mg tablet Take 1 tablet every 12 hours by oral route. 10/31 completed Not Available Not Available Not Available fexofenadin e 180 mg tablet TAKE 1 TABLET BY MOUTH EVERY DAY IN THE EVENING 10/03 completed Not Available Not Available Not Available levofloxaci n 250 mg tablet Take 1 tablet every day by oral route for 5 days. 09/20 completed Not Available Not Available Not Available ciprofloxac in 500 mg tablet TAKE 1 TABLET BY MOUTH EVERY 12 HOURS FOR 5 DAYS 03/06 completed Not Available Not Available Not Available tramadol 50 mg tablet TAKE 1 TABLET BY MOUTH THREE TIMES DAILY NEEDED. 09/20 completed Not Available Not Available Not Available triamcinolo ne acetonide 0.1 % topical cream APPLY TO AFFECTED AREAS OF NECK AND FACE TWICE DAILY. 09/20 completed Not Available Not Available Not Available cyanocobala min (vit B-12) 1,000 mcg/mL injection solution INJECT 1 ML SUBCUTANE OUSLY EVERY WEEK IN THE MORNING FOR 90 DAYS. 09/20 completed Not Available Not Available Not Available tacrolimus 0.1 % topical ointment APPLY THIN LAYER TO AFFECTED AREAS TWICE DAILY NEEDED 09/20 completed Not Available Not Available Not Available triamcinolo ne acetonide 0.1 % topical ointment PLEASE SEE ATTACHED FOR DETAILED DIRECTION S 09/20 completed Not Available Not Available Not Available nystatin 100,000 unit/gram topical cream APPLY TO THE AFFECTED AREA(S) BY TOPICAL ROUTE 2 TIMES PER DAY X30 DAYS 10/03 completed Not Available Not Available Not Available Synthroid 75 mcg tablet TAKE 1 TABLET BY MOUTH EVERY DAY IN THE MORNING 09/20 completed Not Available Not Available Not Available hydrocortis one 2.5 % topical cream APPLY TWICE DAILY TO FACE, THEN ONCE DAILY, THEN NEEDED 09/20 completed Not Available Not Available Not Available clobetasol 0.05 % topical ointment APPLY BY TOPICAL ROUTE TO HANDS DAILY, THEN NEEDED. 09/20 completed Not Available Not Available Not Available fluticasone propionate 50 mcg/actuati on nasal spray,suspe nsion SPRAY 1 SPRAY INTO EACH NOSTRIL EVERY DAY 01/05 completed Not Available Not Available Not Available 1.530 (28) 1.5 mg-30 mcg (21)/75 mg (7) tablet Take 1 tablet every day by oral route. 10/31 completed Not Available Not Available Not Available nitrofurant oin monohydrate /macrocryst als 100 mg capsule TAKE 1 CAPSULE BY MOUTH EVERY 12 HOURS FOR 7 DAYS 09/20 completed Not Available Not Available Not Available 04/10 completed Not Available Not Available Not Available butalbital- acetaminoph en-caffeine 50 mg-300 mg-40 mg capsule take 1 - 2 capsule by oral route every 4 hours as needed not to exceed 6 capsules per 24hrs 09/20 completed Not Available Not Available Not Available Nexplanon 68 mg subdermal implant Inject 1 implant by subcutane ous route. 10/03 completed Not Available Not Available Not Available BD Insulin Syringe Ultra-Fine 1 mL 31 gauge x 5/16 INJECT SUBQUTANE OUSLY ONCE WEEKLY FOR 90 DAYS 09/20 completed Not Available Not Available Not Available Fioricet with Codeine 50 mg-300 mg-40 mg-30 mg capsule Take 1 capsule every 4 hours by oral route. 02/08 completed Not Available Not Available Not Available Mucus Relief ER 1,200 mg tablet, extended release TAKE 1 TABLET EVERY 12 HOURS BY ORAL ROUTE. 01/05 completed Not Available Not Available Not Available Eucrisa 2 % topical ointment APPLY THIN COAT TO AFFECTED AREA TWICE A DAY 01/05 completed Not Available Not Available Not Available Twirla 120 mcg-30 mcg/24 hr transdermal patch APPLY 1 PATCH TOPICALLY TO THE SKIN EVERY WEEK FOR 21 DAYS 03/06 completed Not Available Not Available Not Available Vitals Date Recorded Body height Body mass index (BMI) Body weight Systolic blood pressure Diastolic blood pressure Provider Name and Address Organization Details Last Updated DateTime 01/05/2021 154.94 cm 25.5 kg/m2 89395.97 g 112 mm[Hg] 77 mm[Hg] Kisha Nuno [facility] 10:59:01 Date Recorded Body height Body mass index (BMI) Body weight Systolic blood pressure Diastolic blood pressure Provider Name and Address Organization Details Last Updated DateTime 03/06/2021 154.94 cm 25.5 kg/m2 47276.97 g 109 mm[Hg] 74 mm[Hg] Parisa Elma [facility] 1 14:17:13 Date Recorded Body height Body mass index (BMI) Body weight Systolic blood pressure Diastolic blood pressure Provider Name and Address Organization Details Last Updated DateTime 10/03/2022 154.94 cm 25.5 kg/m2 06161.97 g 114 mm[Hg] 79 mm[Hg] Parisa Elma [facility] 3 15:21:53 Date Recorded Body height Body mass index (BMI) Body weight Systolic blood pressure Diastolic blood pressure Provider Name and Address Organization Details Last Updated DateTime 03/04/2023 154.94 cm 26.6 kg/m2 03386.52 g 107 mm[Hg] 75 mm[Hg] Oliva Lomas [facility] 3 16:02:17 Date Recorded Body height Body mass index (BMI) Body weight Systolic blood pressure Diastolic blood pressure Provider Name and Address Organization Details Last Updated DateTime 09/20/2024 154.94 cm 24.6 kg/m2 05004.01 g 113 mm[Hg] 81 mm[Hg] Allison Smith [facility] 5 16:17:39 Social History Question Answer Notes LastModified by Organizat ion Details LastModified Time Tobacco Smoking Status Never Smoker Allison Patelremington armstrong [facility] 03/04/2023 15:46:33 Do You Have An Advance Directive? No [email or web address] Information not available 10/31/2020 What Is Your Level Of Alcohol Consumption? None [email or web address] Information not available 10/31/2020 If You Are , What Was Your Level Of Alcohol Consumption Prior To ? Occasional Information not available 03/04/2023 Are You Blind Or Do You Have Difficulty Seeing? No [email or web address] Information not available 10/31/2020 What Is Your Level Of Caffeine Consumption? Occasional [email or web address] Information not available 10/31/2020 How Much Tobacco Do You Chew? None [email or web address] Information not available 10/31/2020 In The 14 Days Before Symptom Onset, Have You Had Close Contact With A Laboratory-confir med COVID-19 While That Case Was Ill? No [email or web address] Information not available 10/31/2020 In The 14 Days Before Symptom Onset, Have You Had Close Contact With A Person Who Is Under Investigation For COVID-19 While That Person Was Ill? No [email or web address] Information not available 10/31/2020 Have You Been To An Area Known To Be High Risk For COVID-19? No [email or web address] Information not available 10/31/2020 Are You Deaf Or Do You Have Serious Difficulty Hearing? No [email or web address] Information not available 10/31/2020 What Type Of Diet Are You Following? REGULAR [email or web address] Information not available 10/31/2020 Do You Or Have You Ever Used E-cigarettes Or Vape? Never Used Electronic Cigarettes [email or web address] Information not available 03/04/2023 What Is The Highest Grade Or Level Of School You Have Completed Or The Highest Degree You Have Received? 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 No [email or web address] Information not available 10/31/2020 What Was The Date Of Your Most Recent Tobacco Screening? 10/03/2022 [email or web address] Information not available 03/04/2023 Have You Ever Been Counseled For Unhealthy Alcohol Use? No [email or web address] Information not available 03/04/2023 Do You Use Protection During Sex? Always [email or web address] Information not available 10/31/2020 Do You Use Your Seat Belt Or Car Seat Routinely? Yes [email or web address] Information not available 10/31/2020 Do You Have Smoke And Carbon Monoxide Detectors In Your Home? No [email or web address] Information not available 10/31/2020 Do You Or Have You Ever Used Smokeless Tobacco? Never Used Smokeless Tobacco [email or web address] Information not available 03/04/2023 How Much Tobacco Do You Smoke? No [id number] Information not available 06/12/2020 Do You Feel Stressed (tense, Restless, Nervous, Or Anxious, Or Unable To Sleep At Night)? [id number] Information not available 10/31/2020 Do You Use Any Illicit Or Recreational Drugs? No [email or web address] Information not available 10/31/2020 Do You Use Sunscreen Routinely? No Information not available 10/03/2022 Has Tobacco Cessation Counseling Been Provided? No [email or web address] Information not available 03/04/2023 Have You Used IV Drugs? No [email or web address] Information not available 10/31/2020 Do You Or Have You Ever Used Any Other Forms Of Tobacco Or Nicotine? No [email or web address] Information not available 03/04/2023 Sex: Unknown Functional Status Question Answer Note LastModified by Organizat ion Details LastModified Time Do you have difficulty walking or climbing stairs? No [email or web address] Information not available 03/04/2023 Are you able to walk? YESWOREST [email or web address] Information not available 10/31/2020 Are you able to care for yourself? Yes [email or web address] Information not available 03/04/2023 Do you have difficulty dressing or bathing? No [email or web address] Information not available 03/04/2023 What is your exercise level? Occasional [id number] Information not available 06/12/2020 Mental Status None recorded. Family History Relationship Description Onset Age of this Age Resolved Age Notes LastModified by Organization Details LastModified Time Maternal Grandfather Hypercholest jalynolemchika camillemalvinerik l Not available 12/13/2019 04:29:14 Maternal Grandfather Hypertensive disorder adry l Not available 12/13/2019 04:29:25 Paternal Grandmother Family history of breast cancer [email or web address] Not available 2022 15:46:32 Notes:Maternal grandfather: High cholesterol, Hypertension Paternal grandmother: Cancer, breast Medical History Condition Response Allergies (Food, seasonal, environmental ) N Other Y Breast Cancer N Drug/Latex Allergies/Reactions N Blood Transfusion Y Lung Disease N Dermatologic Disorders N Defects or Inherited Disease N Breast Problem N Gestational Diabetes N Hematologic disorders N Anesthesia Complications N History of STI N Deep Vein Thrombosis N Polycystic ovary syndrome N Anxiety Disorder N Autoimmune disease N Arthritis N Polyps N Infertility N History of abnormal pap N Acid Reflux (GERD) N Cancer N Varicosities N Stroke N Neurologic/Epilepsy N Endometriosis N High Cholesterol N Fibromyalgia N Headaches Y Kidney Disease N Heart Problems N Kidney or Bladder Problems N Thyroid Problems Y GI Problems N Eating Disorder N Anemia N Art (IVF or FET) N Psychiatric Illness N Ovarian Cancer N Diabetes N Pulmonary (TB, Asthma) N Hepatitis/Liver Disease N Eczema N Urinary Tract Infection N Abuse/Domestic Violence N Asthma N Trauma/Violence N Depression/ depression N Heart Disease N Pre-Eclampsia N Hypertension N Osteoporosis N Thrombophilias N Gynecological History Statement/Question Response Date of Last Mammogram Date of LMP 09/12/2024 N Was last menstrual period normal Y STIs/STDs N Seeking Desired Control Method Abnormal Pap N On BCP's at Conception? N HPV Vaccine Y Duration of Flow (days) 28 Current Control Method None Age at First Child 25 Are cycles usually normal Y Frequency of Cycle (Q days) 5 Sexually Active? Y Menses Monthly Y Age of first menstrual cycle 11 Date of Last Pap Smear 10/03/2022 Sexual Problems? N LMP Definite N Obstetrics History GPAL:G 2 P 1 0 1 1 Type Value Full Term 1 Spontaneous 1 Living 1 Total 2 Past Encounters Encounter ID Performer Location Encounter Start Date Encounter Closed Date Diagnosis/Indication Diagnosis SNOMED-CT Code Diagnosis ICD10 Code Diagnosis Note [id number] [place] [address],[place] [address] 12/13/2019 09:09:56 12/13/2019 12:03:11 Normal [id number] Z34.92 [id number] [facility] [address],[place] [address] 12/13/2019 09:14:46 12/13/2019 10:16:28 Low lying placenta [id number] O44.42 Z3A.22 [id number] [facility] [facility] [employer] [facility] [address],[place] [address] 01/10/2020 09:13:10 01/10/2020 13:36:00 Routine care [id number] Z34.92 [id number] [facility] [address],[place] [address] 01/10/2020 09:15:08 01/10/2020 11:19:11 Placenta previa without hemorrhage 2621455 O44.02 Z3A.26 [address] [place] [address],[place] [address] 01/26/2020 09:48:43 01/26/2020 11:54:12 Routine care [id number] Z34.03 15444 Mirta Dennison [place] [address],[place] [address] 02/09/2020 09:53:25 02/09/2020 12:34:39 Uterine size for dates discrepancy 292726926 O26.843 Z3A.31 43176 [facility] [address],[place] [address] 02/09/2020 09:53:54 02/09/2020 12:33:45 Routine care 206124778 Z34.93 [id number] Karthik Guerrero MD [place] [address],[place] [address] 02/24/2020 09:46:06 02/24/2020 10:36:23 Routine care 683622460 Z34.83 79241 Karthik Guerrero MD [place] [address],[place] [address] 03/09/2020 09:29:36 03/09/2020 09:52:17 Routine care 194627375 Z34.83 98670 Karthik Guerrero MD [place] [address],[place] [address] 03/17/2020 10:00:51 03/17/2020 11:03:55 Routine care 852535886 Z34.83 18955 [facility] [address],[place] [address] 03/22/2020 14:26:20 03/22/2020 15:12:59 Routine care 108571804 Z34.93 505[address] [facility] [address],[place] [address] 04/10/2020 11:45:15 04/10/2020 12:10:49 Vaginitis 29689303 N76.0 suspect bacteria, tx with flagyl bottle feeding f/u pp visit Vaginal discharge 942628 006 N89.8 32358 Yue Villafana [facility] [address],[place] [address] 05/02/2020 12:24:40 05/02/2020 15:33:36 Surveillance of oral contraception 935250746 Z30.41 care 86429492 8 Z39.2 normal pp exam reviewed se of ocp including blood clots, give one month to be effective as bc, f/u wwe and med check in sep 2020 [address] [facility] [address],[place] [address] 10/31/2020 13:52:59 10/31/2020 15:31:57 Gynecologic examination 57984892 Z01.419 Enlarged uterus 53136774 4 N85.2 80080 Karthik Guerrero MD [place] [address],[place] [address] 01/05/2021 10:52:41 01/05/2021 12:50:22 Dysuria 52343387 R30.9 This patient is a 25-year-ol d female presents for painful urination, low back pain. Symptoms have been present for about 4 days. There is no gross blood in the urine. She denies any fevers or chills. She denies any flank pain. We agreed to treat for urinary tract infection. Talked about contracept lissa management . Patient was given a refill on her combined hormone contracept lissa patches. Contracept ion care management 727209931 Z30.9 40814 Yue Villafana CNM [place] [address] [place] [address] 03/06/2021 13:54:09 03/06/2021 14:35:08 Contraception care management 923088086 Z30.9 Insertion of subcutaneous contraceptive 934447477 Z30.9 [id number] Yue Villafana CNM [place] [address] [place] [address] 10/03/2022 15:08:41 10/03/2022 16:52:37 Gynecologic examination 36568920 Z01.419 [id number] SAFIA Grover [place] [address],[facility] [place] [address] 03/04/2023 15:42:18 03/04/2023 16:14:50 Dysuria 08285828 R30.0 suspect UTIcx sentrx sent, R/B/A reviewedpr ecautions discussedR TC if symptoms persist past treatment Time spent in visit is a total of 18 mins with at least 50% of visit consisting of counseling and review of plan of care. Acute urin michelle tract infection 393117960 N39.0 [id number] SAFIA Grover [place] [address],[facility] [place] [address] 09/20/2024 15:51:21 09/20/2024 16:45:40 Gynecologic examination 10854824 Z01.419 WWEBC - TTC, encouraged daily PNV, discussed timed ICPap - UTD/ not indicated todaySTI screen - declinedRo utine labs - PCPRTC in 1 yr or sooner if needed It is strongly advised to have an annual flu shot and up can obtain at most pharmacies . If you have not had a TDap shot in the last 10 years you should obtain one as well. Discussed with patient & provided with informatio n regarding the HPV vaccine if applicable . Encourage safe sexual practices, to use condoms and limit partners if not already in a monogamous relationsh ip. Do monthly self breast exams. BRCA testing is now available for patients with strong genetic history of female cancer. If interested contact the office. Engage in regular exercise. Avoid tobacco and illicit drugs. This lifestyle behavior pattern will lead to less health conditions and longer life span. If BMI greater than 25 dietary consult advised. Questions answered. Health Concerns Section Related Observation LastModified by Organization Detai ls LastModified Time None Recorded Concern Status LastModified by Organization Details LastModified Time None Recorded Advance Directives Directive N: Payers Encounter Date Sequence Insurance Name Policy Number Policy Polanco Covered Member ID Polanco Member ID Guarantor Name 01/05/2021 1 [id number] Mario Luis [id number] Ju Prescott 03/06/2021 1 [facility] [id number] Mario Luis [id number] Ju Prescott 10/03/2022 1 [employer] (PPO) NONE Ju Prescott [id number] Ju Prescott 03/04/2023 1 [employer] NONE Ju Prescott [id number] Ju Prescott 09/20/2024 1 [place] [id number] Ju Prescott [id number] Ju Prescott Notes Date Note Type Note Provider Name and Address Organization Details Recorded Time 01/05/2021 text/html This patient is a 25-year-old female presents for painful urination, low back pain. Symptoms have been present for about 4 days. There is no gross blood in the urine. She denies any fevers or chills. She denies any flank pain. We agreed to treat for urinary tract infection. Talked about contraceptive management. Patient was given a refill on her combined hormone contraceptive patches. Karthik Guerrero MD [address], [place], [address], [facility] 01/05/2021 11:28:17 03/06/2021 text/html patch was always falling off wants nexliliyaon reviewed risk of infection, bruising and irreg/irreg bleeding, consent signed, on cycle, neg UPT Yue Villafana CNM [address], [place], [address], [facility] 03/06/2021 14:31:55 10/03/2022 text/html Annual GYNReport ed bypatient.History:pl anning in the near future Menstrual cycle:Normal menses Urinary symptoms:No hematuria; No incontinence Vulva:No genital lesion Vagina:Normal vaginal discharge Breast:No breast pain; No breast lump; No nipple discharge Sexual complaints:No sexual complaints; No pain during intercourse; Normal libido Menopausal Symptoms:No menopausal symptoms; Normal vaginal lubrication Psychological symptoms:No depression; No anxiety; No PMDD Preventive measures:Encourage self breast examination; Encourage regular exercise; Encourage no tobacco useNotes:wants nexplanon out would like to try for soon, doing well Yue Villafana CNM [address], [place], [address], [facility] 10/03/2022 16:40:58 03/04/2023 text/html 27yopresents for evaluation of urinary burning, frequency, and urgencysymptoms started 2 days agono new partnersneg vaginal symptomsneg n/v/fneg flank pains SAFIA Grover [address], [place], [address], [facility] 03/04/2023 16:12:01 09/20/2024 text/html Annual GYNReport ed bypatient.Menstrual cycle:Normal menses Urinary symptoms:No hematuria; No incontinence Vulva:No genital lesion Vagina:Normal vaginal discharge Breast:No breast pain; No breast lump; No nipple discharge Sexual complaints:No sexual complaints; No pain during intercourse; Normal libido Menopausal Symptoms:No menopausal symptoms; Normal vaginal lubrication Psychological symptoms:No depression; No anxiety; No PMDD Preventive measures:Encourage self breast examination; Encourage regular exercise; Encourage no tobacco use; Encourage regular mammograms starting age 40Notes:29yowweTTC x 6 monthsno h/o abnormal papslast pap 09/2022 : SAFIA Chapa [address], [place], [address], [facility] 09/20/2024 16:43:32 OBGyn Episode Ob Episode Information Episode Created Date Number of Fetuses Patient Bloodtype Patient rh Status Prepregnancy Weight lbs Domestic Partner Domestic Partner Phone Father Name Finger Buff Sewer Status 12/13/19 20 1 CLOSED Fetus Data First Name Last Name Admitted to NICU Weight (g) Sex Living Outcome Pediatric Complications Fetus ID Race Codes Race Delivery Type , Spontane ous 1139 Nas Calculation Initial Nas Date Initial Exam Date Initial Exam Provider Initial Ultrasound Date Last Menstrual Period Date Ultra Sound Weeks Gestation 0 Eighteen To Twenty Week Nas Update Ultra Sound Date Fundal Height At Umbil Quickening Date Ultra Sound Latest Weeks Gestation Final Nas Confirmed By Final Nas Confirmed Date Final Nas Date Ultra Sound Latest Days Gestation 0 0 Menstrual History Last Menstrual Date Menses Monthly On Bcp Conception Prior Menses Frequency Hcg Plus Date Menarche Onset Age Delivery Information Delivery Date Delivery Type Labor Anesthesia Weeks Gestation Incision Type Labor Labor Length Hrs Delivered By Post Complications Tubal Sterilization Discharge Date Comments 8 Discharge Information Feeding Method Contraceptive Method Maternal HG B and HCT Levels Ob Episode Information Episode Created Date Number of Fetuses Patient Bloodtype Patient rh Status Prepregnancy Weight lbs Domestic Partner Domestic Partner Phone Father Name Finger Buff Sewer Status 12/13/19 20 1 A Positive 141 CLOSED Fetus Data First Name Last Name Admitted to NICU Weight (g) Sex Living Outcome Pediatric Complications Fetus ID Race Codes Race Delivery Type 3345.24 1 F true Full Term 1144 Vaginal Delivery Problems Problem Notes Problem Name Start Date End Date Resolution Snomed Code Not e Low lying placenta 01/10/2020 SELFRESOLVED [id number] resolved Nas Calculation Initial Nas Date Initial Exam Date Initial Exam Provider Initial Ultrasound Date Last Menstrual Period Date Ultra Sound Weeks Gestation 04/09/2020 12/13/2019 11/15/2019 07/09/2019 19 Eighteen To Twenty Week Nas Update Ultra Sound Date Fundal Height At Umbil Quickening Date Ultra Sound Latest Weeks Gestation Final Nas Confirmed By Final Nas Confirmed Date Final Nas Date Ultra Sound Latest Days Gestation 09/22/19 20 12 [email or web address] 01/10/2020 04/06/20 20 0 Pre- Flowsheet Flowsheet Date 12/13/2019 Roth Score Blood Edema Fundus Height Fundus Units Glucose Ketones Leukocytes Nitrite Labor Signs Protein Cervic Dilation Cervic Effacement Cervic Station none 24 cm trace Type Weight in lbs Pre/Post Dialysis Refused Weight 147.837253009321 BP Diastolic BP Location Tested BP Systolic BP Type 69 108 Fetus Heart Rate Present A 150 Fetus Movement A Yes Comments glucose neg Patient reports EDC 04/05 by 11 week U/S (9/ by LMP). We still don't have records, so we'll try to get that U/ report as that is likely her correct EDC 04/05. Outside labs received today, all normal except carrier for SMA so partner testing recommended. He does not have insurance, so it would cost $250 . They will think about it. She is expecting baby girl Carlos and plans to bottle feed Flowsheet Date 01/10/2020 Roth Score Blood Edema Fundus Height Fundus Units Glucose Ketones Leukocytes Nitrite Labor Signs Protein Cervic Dilation Cervic Effacement Cervic Station Type Weight in lbs Pre/Post Dialysis Refused BP Diastolic BP Location Tested BP Systolic BP Type Fetus Heart Rate Present Fetus Movement Comments Flowsheet Date 01/10/2020 Roth Score Blood Edema Fundus Height Fundus Units Glucose Ketones Leukocytes Nitrite Labor Signs Protein Cervic Dilation Cervic Effacement Cervic Station neg none trace Type Weight in lbs Pre/Post Dialysis Refused Weight 151.333317146661 BP Diastolic BP Location Tested BP Systolic BP Type 72 104 Fetus Heart Rate Present Fetus Movement A Yes Comments patient states that having L eft side abdominal pain and cramping, some rib and hip pain US reviewed, dating reviewed Flowsheet Date 11/15/2019 Roth Score Blood Edema Fundus Height Fundus Units Glucose Ketones Leukocytes Nitrite Labor Signs Protein Cervic Dilation Cervic Effacement Cervic Station trace trace Type Weight in lbs Pre/Post Dialysis Refused Weight 138.276744606876 BP Diastolic BP Location Tested BP Systolic BP Type 77 110 sitting Fetus Heart Rate Present A 144 Fetus Movement A No Comments : This patient is a 24-year- old 2 para 0010 at 18 weeks gestation who presented for initial care. She has a low-lying placenta. Ultrasound was performed today. She has limited care prior to today. We're looking for her records from another office that has the labs. Flowsheet Date 01/26/2020 Roth Score Blood Edema Fundus Height Fundus Units Glucose Ketones Leukocytes Nitrite Labor Signs Protein Cervic Dilation Cervic Effacement Cervic Station none 31 cm trace Type Weight in lbs Pre/Post Dialysis Refused Weight 154.567594834615 BP Diastolic BP Location Tested BP Systolic BP Type 70 L arm 102 sitting Fetus Heart Rate Present A 135 Fetus Movement A Yes Comments Glucose negative. bc, rma No complaints. FOB negative SMA carrier. Flowsheet Date 02/09/2020 Roth Score Blood Edema Fundus Height Fundus Units Glucose Ketones Leukocytes Nitrite Labor Signs Protein Cervic Dilation Cervic Effacement Cervic Station Type Weight in lbs Pre/Post Dialysis Refused BP Diastolic BP Location Tested BP Systolic BP Type Fetus Heart Rate Present Fetus Movement Comments Flowsheet Date 02/09/2020 Roth Score Blood Edema Fundus Height Fundus Units Glucose Ketones Leukocytes Nitrite Labor Signs Protein Cervic Dilation Cervic Effacement Cervic Station 32 trace Type Weight in lbs Pre/Post Dialysis Refused Weight 154.789439896039 BP Diastolic BP Location Tested BP Systolic BP Type 68 L arm 101 sitting Fetus Heart Rate Present A 136 Fetus Movement A Yes Comments Pt doing well. Encouraged Td ap. Will call to schedule pre admit. PTL precautions discussed. Flowsheet Date 02/24/2020 Rtoh Score Blood Edema Fundus Height Fundus Units Glucose Ketones Leukocytes Nitrite Labor Signs Protein Cervic Dilation Cervic Effacement Cervic Station 34 trace Type Weight in lbs Pre/Post Dialysis Refused Weight 156.328187966621 BP Diastolic BP Location Tested BP Systolic BP Type 77 110 Fetus Heart Rate Present A 140 Fetus Movement A Yes Comments Flowsheet Date 03/09/2020 Roth Score Blood Edema Fundus Height Fundus Units Glucose Ketones Leukocytes Nitrite Labor Signs Protein Cervic Dilation Cervic Effacement Cervic Station 38 trace 3cm 70% -2 Type Weight in lbs Pre/Post Dialysis Refused Weight 157.229601422986 BP Diastolic BP Location Tested BP Systolic BP Type 74 107 Fetus Heart Rate Present A 145 Fetus Movement A Yes Comments Flowsheet Date 03/17/2020 Roth Score Blood Edema Fundus Height Fundus Units Glucose Ketones Leukocytes Nitrite Labor Signs Protein Cervic Dilation Cervic Effacement Cervic Station neg trace 37 trace Type Weight in lbs Pre/Post Dialysis Refused Weight 161.877193475578 BP Diastolic BP Location Tested BP Systolic BP Type 75 111 Fetus Heart Rate Present A 145 Fetus Movement A Yes Comments Flowsheet Date 03/22/2020 Roth Score Blood Edema Fundus Height Fundus Units Glucose Ketones Leukocytes Nitrite Labor Signs Protein Cervic Dilation Cervic Effacement Cervic Station 38 1+ 3cm 60% -2 Type Weight in lbs Pre/Post Dialysis Refused Weight 159.165820466366 BP Diastolic BP Location Tested BP Systolic BP Type 77 L arm 112 sitting Fetus Heart Rate Present A 143 Fetus Movement A Yes Comments Occasional contractions. Pt states Dr Guerrero has already scheduled MIL for 8-21. Labor precautions. Flowsheet Date 04/10/2020 Roth Score Blood Edema Fundus Height Fundus Units Glucose Ketones Leukocytes Nitrite Labor Signs Protein Cervic Dilation Cervic Effacement Cervic Station Type Weight in lbs Pre/Post Dialysis Refused Weight 138.986313961705 BP Diastolic BP Location Tested BP Systolic BP Type 76 109 Fetus Heart Rate Present Fetus Movement Comments Flowsheet Date 05/02/2020 Roth Score Blood Edema Fundus Height Fundus Units Glucose Ketones Leukocytes Nitrite Labor Signs Protein Cervic Dilation Cervic Effacement Cervic Station Type Weight in lbs Pre/Post Dialysis Refused Weight 138.340389704468 BP Diastolic BP Location Tested BP Systolic BP Type 69 102 Fetus Heart Rate Present Fetus Movement Comments Menstrual History Last Menstrual Date Menses Monthly On Bcp Conception Prior Menses Frequency Hcg Plus Date Menarche Onset Age 1107/09/2019 Genetic Screening And Infection History Question Response Note Mental Retardation/Autism false Patient's Age Will Be 35 Years Or Older At Estim ated Date of Delivery false Thalassemia (Saudi Arabian, Maltese, Mediterranean, Or Background): MCV < 80 false Neural Tube Defect (Meningomyelocele, Spina Bifi da, Or Anencephaly) false Congenital Heart Defect false Down Syndrome false Jeff-Sachs (eg, Yazidism, Cajun, Upper Sor[place]) f alse Martina Disease false Sickle Cell Disease Or Trait () false Hemophilia Or Other Blood Disorders false Muscular Dystrophy false Cystic Fibrosis false Kiron's Chorea false Intellectual Disability/Autism false If Yes, Was Person Tested For Fragile X? false Other Inherited Genetic Or Chromosomal Disorder false Maternal Metabolic Disorder (eg, Type 1 Diabetes , PKU) false Patient Or Baby's Father Had A Child With Defects Not Listed Above false Recurrent Loss, Or A Stillbirth false Medications (including Suppl ements, Vitamins, Herbs, OTC Drugs), Illicit/Recreational Drugs, Alcohol false If Yes, Agent(s) And Strength/Dosage false Any Other Genetic History false Live With Someone With TB Or Exposed To TB false Patient Or Partner Has History Of Genital Herpes false Rash Or Viral Illness Since Last Menstrual Perio d false History Of STD, Gonorrhea, Chlamydia, HPV, Syphi lis false Other Infection History false History of HIV false History of Hepatitis false Prior GBS-infected child false Hemoglobinopathy Or Carrier false Other Structural Defect false Recent Travel History Outside of Country false Delivery Information Delivery Date Delivery Type Labor Anesthesia Weeks Gestation Incision Type Labor Labor Length Hrs Delivered By Post Complications Tubal Sterilization Discharge Date Comments 0 Induce d Regional-Ep idural 39 false Yue Villafana CNRickey 1000mcg cytotec at delivery Discharge Information Feeding Method Contraceptive Method Maternal HG B and HCT Levels Ob Episode Information Episode Created Date Number of Fetuses Patient Bloodtype Patient rh Status Prepregnancy Weight lbs Domestic Partner Domestic Partner Phone Father Name Finger Buff Sewer Status 04/09/20 20 1 DELETED Nas Calculation Initial Nas Date Initial Exam Date Initial Exam Provider Initial Ultrasound Date Last Menstrual Period Date Ultra Sound Weeks Gestation 0 Eighteen To Twenty Week Nas Update Ultra Sound Date Fundal Height At Umbil Quickening Date Ultra Sound Latest Weeks Gestation Final Nas Confirmed By Final Nas Confirmed Date Final Nas Date Ultra Sound Latest Days Gestation 0 0 Menstrual History Last Menstrual Date Menses Monthly On Bcp Conception Prior Menses Frequency Hcg Plus Date Menarche Onset Age Delivery Information Delivery Date Delivery Type Labor Anesthesia Weeks Gestation Incision Type Labor Labor Length Hrs Delivered By Post Complications Tubal Sterilization Discharge Date Comments 0 39 Discharge Information Feeding Method Contraceptive Method Maternal HG B and HCT Levels
[2024-11-04 14:40] LABS: Thyroid Stimulating Hormone 5.79 uIU/mL (0.36-3.74); Vitamin B12 267 pg/mL (193-986)
== END 2024-11-04 10:03 | disposition home or self-care (01) ==
LOC: CHSLAB 10:03
PROVIDERS: PCP Nurse Practitioner Family; Visit Provider Nurse Practitioner Family
DX: E53.8 Deficiency of other specified B group vitamins (principal); E03.9 Hypothyroidism, unspecified
CPT/HCPCS: 36415; 82607; 84443

== ENCOUNTER 2025-05-01 00:54 | Day surgery (SDC) | payer BC, SELFPAY ==
--- OUTSIDE RECORDS SUMMARY | 2025-03-13 09:20 | XMS_ITS ---
Author Organization [facility] Address [address], [place] [id number] Care Team Providers Care Supervisor Alteration Workroom Name Role Phone Billie Jay [phone] REASON FOR VISIT 2 month f/u Encounters Encounter Location Date Provider Diagnosis [facility]MO Dr. Jay [address] [place] [id number] 03/13/2025 Billie Jay Plan Of Treatment No Information Progress Notes * Ju VALLEJODOB:1995 ([age] yo F)Acc No.[id number]:03/13/2025 Progress Notes Patient: Ju Rodriguez Provider: Rickey Jay MD :1995 A ge:29 Y S ex:Female Date:03/13/2025 Phone: [id number] Subjective: * Chief Complaints: * 2 month f/u * Electronic signature of Storm Jay MD on 05/01/2025 at 12:57 AM CDT Sign off status: Pending * Provider: Rickey Jay MD Date: 03/13/2025 Generated for Elli muñoz/Pa/eTransmitting on: 0 05/01/2025 12:57 AM CDT
[2025-04-26 13:28] VITALS: BMI 26.3
--- OUTSIDE RECORDS SUMMARY | 2025-05-01 00:57 | XMS_ITS | Patient Health Record ---
Author Organization [facility] Address [address] [facility] DEIRDRE Garcia [id number] Care Team Providers Care Payroll Officer Name Role Phone Billie Jay Unavailable [phone] Allergies Allergen (clinical drug ingredient) Drug/Non Drug Allergy documented on EMR Reaction Allergy Type Onset Date Status amoxicillin Amoxicillin Unknown Drug Allergy Act lissa Substance with sulfonamide structure and antibacterial mechanism of action (substance) Sulfa Antibiotics rash Drug Allergy Active Results Component Value Reference Range Flag Notes .COMPREHENSIVE METABOLIC PRESSLEY EL (87845) CMP Reviewed date:01/05/2025 08:00:52 AM Interpretation: Performing Lab:JOSE, [place] [address], [address] [facility] Notes/Report: FASTING:NO FASTING: NO GLUCOSE 74 65-99 mg/dL N Fasting reference interval UREA NITROGEN (BUN) 12 7-25 mg/dL N CREATININE 0.66 0.50-0.96 mg/dL N EGFR 122 > OR = 60 mL/min/1.73m2 N BUN/CREATININE RATIO SEE NOTE: 6-22 (calc) Not Reported: BUN and Creatinine are within reference range. SODIUM 135 135-146 mmol/L N POTASSIUM 3.8 3.5-5.3 mmol/L N CHLORIDE 102 98-110 mmol/L N CARBON DIOXIDE 29 20-32 mmol/L N CALCIUM 9.4 8.6-10.2 mg/dL N PROTEIN, TOTAL 7.2 6.1-8.1 g/dL N ALBUMIN 4.2 3.6-5.1 g/dL N GLOBULIN 3.0 1.9-3.7 g/dL (calc) N ALBUMIN/GLOBULIN RATIO 1.4 1.0-2.5 (calc) N BILIRUBIN, TOTAL 0.7 0.2-1.2 mg/dL N ALKALINE PHOSPHATASE 39 31-125 U/L N AST 14 10-30 U/L N ALT 8 6-29 U/L N MAGNESIUM (622) Reviewed date:01/05/2025 08:00:52 AM Interpretation: Performing Lab:Sheila GARCIA [facility] Psrnm[address] Administration Sena Solares [address] Evans Notes/Report: FASTING:NO FASTING: NO MAGNESIUM 1.9 1.5-2.5 mg/dL N IRON AND TOTAL IRON BINDING CAPACITY (7573) Reviewed date:01/05/2025 08:00:52 AM Interpretation: Performing Lab:SON Sendmybag Dianna-Ridwup[address] Jeremy Reid, IczduuFQ[address] [facility] Hospital[facility] Evans MD Notes/Report: FASTING:NO FASTING: NO IRON, TOTAL 196 40-190 mcg/dL H IRON BINDING CAPACITY 274 250-450 mc g/dL (calc) N % SATURATION 72 16-45 % (calc) H .CBC (INCLUDES DIFF/PLT) (63 99) Reviewed date:01/05/2025 08:00:52 AM Interpretation: Performing Lab:Sheila [facility] Tckyo[address] Administration Sena Solares [address] Nathalie Evans Notes/Report: FASTING:NO FASTING: NO WHITE BLOOD CELL COUNT 4.9 3.8-10.8 Thousand/uL N RED BLOOD CELL COUNT 4.41 3.80-5.10 Million/uL N HEMOGLOBIN 12.9 11.7-15.5 g/dL N HEMATOCRIT 40.3 35.0-45.0 % N MCV 91.4 80.0-100.0 fL N MCH 29.3 27.0-33.0 pg N MCHC 32.0 32.0-36.0 g/dL N For adults, a slight decrease in the calculated MCHC value (in the range of 30 to 32 g/dL) is most likely not clinically significant; however, it should be interpreted with caution in correlation with other red cell parameters and the patient's clinical condition. RDW 12.4 11.0-15.0 % N PLATELET COUNT 253 140-400 Thousand/uL N MPV 10.8 7.5-12.5 fL N ABSOLUTE NEUTROPHILS 2479 7055-3885 cells/uL N ABSOLUTE LYMPHOCYTES 8683 350-1037 cells/uL N ABSOLUTE MONOCYTES 353 200-950 cells/uL N ABSOLUTE EOSINOPHILS 142 15-500 cells/uL N ABSOLUTE BASOPHILS 29 0-200 cells/uL N NEUTROPHILS 50.6 N LYMPHOCYTES 38.7 N MONOCYTES 7.2 N EOSINOPHILS 2.9 N BASOPHILS 0.6 N THYROID PEROXIDASE ANTIBODIE S (5081) Reviewed date:01/08/2025 10:00:00 AM Interpretation: Performing Lab:JOSEPH [facility] [address], Pierre AvilesLgwkVK[address] Rafael Wing Aldo Notes/Report: FASTING:NO FASTING: NO THYROID PEROXIDASE ANTIBODIES 163 <9 IU/mL H ESTRADIOL (4021) Reviewed date:01/05/2025 08:00:52 AM Interpretation: Performing Lab:JOSE [facility] Center[facility]llaq[address] Administration Sena SolaresMO[address] Wellington Evans Notes/Report: FASTING:NO FASTING: NO ESTRADIOL 201 N Reference Range Follicular Phase: 19-144 Mid-Cycle: 64-357 Luteal Phase: 56-214 Postmenopausal: < or = 31 Reference range established on post-pubertal patient population. No pre-pubertal reference range established using this assay. For any patients for whom low Estradiol levels are anticipated (e.g. males, pre-pubertal children and hypogonadal/post-menopausa l females), the [facility] Estradiol, Ultrasensitive, LCMSMS assay is recommended (order code 32798). Please note: patients being treated with the drug fulvestrant (Faslodex(R)) have demonstrated significant interference in immunoassay methods for estradiol measurement. The cross reactivity could lead to falsely elevated estradiol test results leading to an inappropriate clinical assessment of estrogen status. [facility] order code 72220-Pottxjvcz, Ultrasensitive LC/MS/MS demonstrates negligible cross reactivity with fulvestrant. PROGESTERONE (745) Reviewed date:01/05/2025 08:00:52 AM Interpretation: Performing Lab:JOSE [facility] Ycpbr01167 Administration Sena SolaresMO[address] Wellington Evans Notes/Report: FASTING:NO FASTING: NO PROGESTERONE <0.5 N Reference Ranges Female Follicular Phase < 1.0 Luteal Phase 2.6-21.5 Post menopausal < 0.5 1st Trimester 4.1-34.0 2nd Trimester 24.0-76.0 3rd Trimester 52.0-302.0 DHEA SULFATE (402) Reviewed date:01/05/2025 08:00:52 AM Interpretation: Performing Lab:Sheila CLINE-Fsxems62584 Tony KanaKS[address] Wellington Evans MD Notes/Report: FASTING:NO FASTING: NO DHEA SULFATE 90 14-349 mcg/dL N VITAMIN B12/FOLATE, SERUM PA BERTIN (7192) Reviewed date:01/05/2025 08:00:52 AM Interpretation: Performing Lab:Sheila CLINE LenexaKS[address] Wellington Evans MD Notes/Report: FASTING:NO FASTING: NO VITAMIN B12 976 025-1209 pg/mL N Please Note: Although the reference range for vitamin B12 is 200-1100 pg/mL, it has been reported that between 5 and 10% of patients with values between 200 and 400 pg/mL may experience neuropsychiatric and hematologic abnormalities due to occult B12 deficiency; less than 1% of patients with values above 400 pg/mL will have symptoms. FOLATE, SERUM 9.3 N Reference Range Low: <3.4 Borderline: 3.4-5.4 Normal: >5.4 FERRITIN (457) Reviewed date:01/05/2025 08:00:52 AM Interpretation: Performing Lab:Sheila CLINEa101Tony ValenciaaKS[address] Wellington Evans MD Notes/Report: FASTING:NO FASTING: NO FERRITIN 21 16-154 ng/mL N T4, FREE (866) Reviewed date:01/05/2025 08:00:52 AM Interpretation: Performing Lab:Sheila GARCIA11636 Administration Sena Solares [place] [address] AbbieSanjuanita Nathalie Evans Notes/Report: FASTING:NO FASTING: NO T4, FREE 1.1 0.8-1.8 ng/dL N TSH (899) Reviewed date:01/05/2025 08:00:52 AM Interpretation: Performing Lab:Sheila GARCIA[address] [place] [address] AbbieEmma Evans Notes/Report: FASTING:NO FASTING: NO TSH 7.14 H Reference Range > or = 20 Years 0.40-4.50 Ranges First trimester 0.26-2.66 Second trimester 0.55-2.73 Third trimester 0.43-2.91 T3, FREE (71909) Reviewed date:01/05/2025 08:00:52 AM Interpretation: Performing Lab:Sheila CLINE-Dfsspl53803 Jeremy Enriquez, AavbwbGQ[address] Wellington Evans MD Notes/Report: FASTING:NO FASTING: NO T3, FREE 3.2 2.3-4.2 pg/mL N .VITAMIN D,25-OH,TOTAL,IA (1 7306) Reviewed date:01/05/2025 08:00:52 AM Interpretation: Performing Lab:Sheila CLINE-Fycezh71631 Jeremy Enriquez, EorqivDZ[address] Wellington Evans MD Notes/Report: FASTING:NO FASTING: NO VITAMIN D,25-OH,TOTAL,IA 33 30-100 ng/mL N Vitamin D Status 25-OH Vitamin D: Deficiency: <20 ng/mL Insufficiency: 20 - 29 ng/mL Optimal: > or = 30 ng/mL For 25-OH Vitamin D testing on patients on D2-supplementation and patients for whom quantitation of D2 and D3 fractions is required, the QuestAssureD(TM) 25-OH VIT D, (D2,D3), LC/MS/MS is recommended: order code 15124 (patients >2yrs). See Note 1 Note 1 For additional information, please refer to http://[employer]/faq/HYW249 (This link is being provided for informational/ educational purposes only.) TESTOSTERONE, FREE (DIALYSIS ) AND TOTAL,MS (47191) Reviewed date:01/09/2025 07:52:50 PM Interpretation: Performing Lab:Z3Michael, [facility]-FuyAzlbpp[address] [place] [address], [address], KngeypxwgeQB[address] Oumou Rojo MD,PhD Notes/Report: FASTING:NO FASTING: NO TESTOSTERONE, TOTAL, MS 30 2-45 ng/dL For additional information, please refer to https://[employer]/faq/SBY923 (This link is being provided for informational/educational purposes only.) (Note) This test was developed and its analytical performance characteristics have been determined by [facility]. It has not been cleared or approved by the FDA. This assay has been validated pursuant to the CLIA regulations and is used for clinical purposes. TESTOSTERONE, FREE 2.7 0.1-6.4 pg/mL (Note) This test was developed and its analytical performance characteristics have been determined by [facility]. It has not been cleared or approved by the FDA. This assay has been validated pursuant to the CLIA regulations and is used for clinical purposes. [facility] [address] [place] [address],[address] [facility] [address] Oumou Rojo MD, PhD ACTH, PLASMA (211) Reviewed date:01/08/2025 10:00:01 AM Interpretation: Performing Lab:LILIANA Sendmybag Dianna/Maggie GarnerB[address], PfvuykkheDN[address] Toño Butterfield M.D.,PhD Notes/Report: FASTING:NO FASTING: NO ACTH, PLASMA 20 6-50 pg/mL Reference range applies only to specimens collected between 7am-10am. IODINE, SERUM/PLASMA (13533) Reviewed date:01/08/2025 10:00:01 AM Interpretation: Performing Lab:LILIANA Sendmybag Dianna/Maggie [facility] LG[address] Jacek Solares, YjvtbsegyIB[address] Toño Butterfield M.D.,PhD Notes/Report: FASTING:NO FASTING: NO IODINE, SERUM/PLASMA 60 52-109 mcg/L This test was developed and its analytical performance characteristics have been determined by [facility] [place], [place]. It has not been cleared or approved by the U.S. Food and Drug Administration. This assay has been validated pursuant to the CLIA regulations and is used for clinical purposes. Reason For Referral No Information Medications Medication SIG (Take, Route, Frequency, Duration) Notes Start Date End Date Status Synthroid 50 MCG Tablet 1 tablet in the morning on an empty stomach Orally Once a day Active Cyanocobalamin 1000 MCG/ML Solution 1 mL Injection weekly; Duration: 90 days please provide 1mlinsulin syringes so patient can inject into belly once weekly x 90 days so 13 syringes thank you 11/30/2024 Active Synthroid 88 MCG Tablet 1 tablet in the morning on an empty stomach Orally Once a day; Duration: 90 days 01/10/2025 Active Social History Tobacco Use: Social History Observation Description Date Details (start date - stop date) Never Smoker NA - NA Social History Tobacco Use: Social Info Question Answer Notes Smoking History Are you a tobacco smoker / vaper? nons moker Are you an other tobacco user? 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 Jay [address] [place] [phone] 11/30/2024 Billie Jay Hypothyroidism due to Brody thyroiditis E06.3 ; Other fatigue R53.83 ; Vitamin B12 deficiency E53.8 and Brain fog R41.[address] 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 Hypothyroidism- Switch from generic levothyroxine to brand-name Synthroid 50 mcg PO daily- Repeat thyroid function tests in 4-6 weeks- Provide samples and information on Synthroid Delivers program- Follow up in approximately 2 months; telehealth option available if needed- Email blood work results to patient when available 2. B12 Deficiency- Check folic acid levels- Consider MTHFR mutation test if indicated 3. Fatigue- Reassess after thyroid medication adjustment and repeat labs- Monitor for improvement in symptoms 4. Migraines- Check hormone levels to evaluate for estrogen dominance 5. Eczema- Continue Dupixent injections as prescribed- Monitor for efficacy and side effects Spent 30 minutes preparing to see the patient (ex review of tests/chart), obtaining and / or reviewing separately obtained history, performing a medically appropriate examination and/or evaluation, counseling and educating the patient/family/rn home care, ordering medications, tests, or procedures, referring and communicating with other health healthcare interpreter, documenting clinical information in the electronic or other health record, independently interpreting results and communicating results to the patient/family/rn home care and care coordinating patient plan. Patient alert and oriented x 4 and aware of discussion noted above and in agreeance to plan in management of hypothyroidism, fatigue, B12 def. 01/10/2025 Other Assessment and Plan: 1. Hypothyroidism (Brody's)- Increase Synthroid dose to 88 mcg daily- Order thyroid function tests (TSH, free T4) in 4-6 weeks- Recommend autoimmune paleo (AIP) diet- Provide patient with AIP diet handout- Follow up in 2 months to reassess thyroid function and symptoms 2. Vitamin B12 Deficiency- Discontinue weekly B12 injections- Start oral methylated B12 and folic acid supplement- Recommend Life Extension methylated complex- Recheck B12 levels in 4-6 weeks 3. Irregular cycles- Optimize thyroid function (see Hypothyroidism plan)- Recommend Laine powder supplementation for potential fertility benefits- Defer progesterone supplementation at this time- Encourage continuation of conception attempts- Follow up in 2 months to reassess fertility status and consider further interventions if needed 4. Elevated Iron Saturation- Repeat iron studies in the future, preferably in the morning- No immediate intervention required 5. Low Alkaline Phosphatase- Monitor alkaline phosphatase levels in future lab work- Consider screening for hypophosphatasia if levels drop into the 20s or lower- No immediate intervention required Spent 25 minutes preparing to see the patient (ex review of tests/chart), obtaining and / or reviewing separately obtained history, performing a medically appropriate examination and/or evaluation, counseling and educating the patient/family/rn home care, ordering medications, tests, or procedures, referring and communicating with other health healthcare interpreter, documenting clinical information in the electronic or other health record, independently interpreting results and communicating results to the patient/family/rn home care and care coordinating patient plan. Patient alert and oriented x 4 and aware of discussion noted above and in agreeance to plan in management of hypothyroidism, irregular cycles, finding of low alk phos and B12 def. Plan Of Treatment No Information Insurance Providers Payer Name Payer Address Payer Phone Subscriber Number Group Number Insured Name Patient Relationship to Insured Coverage Start Date Coverage End Date JASMIN MELLO [address] [place] [address] [id number] Ju Prescott Self - patient is the insured Medical (General) History Medical History History ICD Code Brody's Vitamin B12 Deficiency Hospitalization History Reason Date(Month/Year) Blood Transfusion 1996
[2025-05-01 12:19] VITALS: BP 100/79; PULSE 85; RESP 14; TEMP 36.4; O2SAT 98
[2025-05-01 12:23] LABS: BEDSIDEPREGUCG Negative (Negative)
[2025-05-01] MEDS: LACTATED RINGERS 1,000 ML 150 ML IV CONT (12:26)
--- NOTE | 2025-05-01 12:41 | WPDANESEPPF ---
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-infl Patient Data Age: 29 Gender: F Height: 1.52 m Weight: 61.5 kg Last Vital Signs Temp 97.6 F 05/01/25 12:19 Pulse 85 05/01/25 12:19 Resp 14 05/01/25 12:19 BP 100/79 05/01/25 12:19 Pulse Ox 98 05/01/25 12:19 O2 Del Method Room Air 05/01/25 12:19 Allergies Allergy/AdvReac Type Severity Reaction Status Date / Time Penicillins Allergy Mild TREMBLING Verified 05/01/25 12:18 Sulfa (Sulfonamide Allergy Unknown RASH Verified 05/01/25 12:18 Antibiotics) Home Medications ?Medication ?Instructions ?Recorded ?Confirmed ?Type dupilumab 300 mg/2 mL subcutaneous 300 mg (2 mL) subcut .BIWEEKLY #4 12/06/24 04/26/25 Rx pen injector (Dupixent) mL atogepant 10 mg tablet (Qulipta) 10 mg PO DAILY #30 tabs 02/20/25 05/01/25 Rx levothyroxine 88 mcg capsule 88 mcg PO DAILY 02/20/25 05/01/25 History sucralfate 100 mg/mL oral 1 g (10 mL) PO Q6H 1 week #280 mL 02/20/25 04/26/25 Rx suspension (Carafate) Laboratory Tests 05/01/25 12:19 POC Urine HCG, Qual Negative (Negative) Patient hx anesthesia problems: none Family hx anesthesia problems: none Results Review: All pre-operative results and documents have been reviewed as part of the pre-operative evaluation. [facility] Past Medical History Medical History Upper GI bleed Hypothyroidism diagnosed after of daughter in 2019 History of blood transfusion Family History Family History Grandparent FH: CABG (coronary artery bypass surgery) Borderline diabetes Hypertension Grandparent , originally diagnosed with breast cancer and subsuquently had a blood disorder from which she had Breast cancer Social History Social History Smoking status: Never smoker Alcohol intake: never Substance use: never Substance use type: does not use Living arrangements: with family Spiritual care concerns: No Anes - Eval Final PreProcedure Day of Procedure 05/01/25 12:41 Patient weight: normal Lungs: normal air movement Airway: Mallampati scale class II and special considerations (Upper partial. ) Neurological: alert and oriented Last oral intake: >/= 8 hours ASA classification: II Emergent: no Anesthetic plan: proceed Anesthesia type and monitoring: general GIVS and standard monitoring Results Review: All pre-operative results and documents have been reviewed as part of the pre-operative evaluation. Migranes, hypothyroidism, hx of blood in stool. Informed Consent: The patient's anesthetic plan and its attendant risks and benefits were discussed with the patient/family/POA. Questions were solicited and answers provided to the satisfaction of the patient/family/POA.
--- NOTE | 2025-05-01 13:08 | WPDHPUPDATE1 ---
History and Physical Update Update Date/Time: 05/01/25 13:08 History and Physical has been reviewed, including an updated exam of the patient. There are NO changes in the patient's condition. Risks, benefits, and alternatives have been discussed and questions answered. Patient agrees to proceed with procedure.
--- NOTE | 2025-05-01 13:13 | S_PTH ---
PATIENT: Ju Prescott LOC: [facility] Corea#:[id number] AGE/SX: 29/F ROOM: RE05/01/[address]: Willian Barajas MD : 1995 BED: DIS: 05/01/2025 SPEC #: [id number] RECD: 05/01/25 14:24 STATUS: MARTINEZ REAnastasia #: [id number] PHILIP: 05/01/25 13:[address]: Willian Barajas DEPT: [facility] Surgical RECD BY: Amanda Del Valle ENTERED: 05/01/25 14:24 SP TYPE: Surgical OTHR DR: Angela Apodaca APRN Tissues: A - Gastric Biopsy B - Small Bowel Bx Procedures: Hematoxylin and Eosin Stain Gross and Microscopic Level 4
[2025-05-01 13:16] VITALS: BP 97/62; PULSE 77; RESP 17; O2SAT 100
[2025-05-01 13:26] VITALS: BP 98/64; PULSE 76; RESP 18; O2SAT 100
[2025-05-01 13:36] VITALS: BP 102/68; PULSE 72; RESP 18; O2SAT 100
== END 2025-05-01 13:42 | disposition home or self-care (01) ==
PROVIDERS: Anesthesiology; PCP Nurse Practitioner Family; Visit Provider Internal Medicine Gastroenterology
PROC: 0DJ08ZZ Inspection of Upper Intestinal Tract, Via Natural or Artificial Opening Endoscopic (ICD-10-PCS; CPT 43239; principal; 2025-05-01 13:30)
DX: K29.50 Unspecified chronic gastritis without bleeding (principal); E03.9 Hypothyroidism, unspecified; Z79.85 Long-term (current) use of injectable non-insulin antidiabetic drugs; Z79.1 Long term (current) use of non-steroidal anti-inflammatories (NSAID); Z80.3 Family history of malignant neoplasm of breast; Z82.49 Family history of ischemic heart disease and other diseases of the circulatory system
CPT/HCPCS: 43239; 88305; J2003; J2704; J7120